=== PATIENT | female | born 1930 | race Two or more races ===

== ENCOUNTER 2021-06-11 16:34 | Emergency (ER) | payer MEDICARE ==
[2021-06-11] MEDS ORDERED: SODIUM CHLORIDE 0.9% 500 ML 500 ML IV STA (21:33)
[2021-06-11] MEDS ORDERED: IBUPROFEN 600 MG TAB PO STA (21:33)
--- NOTE | 2021-06-11 22:19 | XR ---
EXAMINATION TYPE: XR pelvis AP view DATE OF EXAM: 06/11/2021 COMPARISON: NONE HISTORY: Fall. Pain TECHNIQUE: Single view FINDINGS: The pelvic ring is intact. Proximal femurs and hip joints are intact. Sacroiliac joints are intact. IMPRESSION: Negative pelvis x-ray exam.
--- NOTE | 2021-06-11 22:27 | XR ---
EXAMINATION TYPE: XR chest 2V DATE OF EXAM: 06/11/2021 COMPARISON: NONE HISTORY: Weakness TECHNIQUE: Single view FINDINGS: There is impacted comminuted right humeral neck fracture. There is inferior displacement of the humeral head. There is partial dislocation. There is no heart failure. There is coarsening of th e lung markings. There is slight blunting of the left costophrenic angle. Thoracic aorta is atheromat ous. There is a thoracic dextroscoliosis. IMPRESSION: Pulmonary fibrotic changes. No heart failure. There is comminuted fracture dislocation of the right shoulder joint. Small bilateral pleural effusions.
[2021-06-11 23:16] LABS: Basophils # (A) 0.1 k/uL (0-0.2); Basophils % (A) 0 %; Eosinophils # (A) 0.2 k/uL (0-0.7); Eosinophils % (A) 1 %; HCT 37.4 % (34.0-46.0); HGB 12.5 gm/dL (11.4-16.0); Lymphocytes # (A) 1.5 k/uL (1.0-4.8); Lymphocytes % (A) 7 %; MCH 32.5 pg (25.0-35.0); MCHC 33.3 g/dL (31.0-37.0); MCV 97.7 fL (80.0-100.0); Monocytes # (A) 1.9 k/uL (0-1.0); Monocytes % (A) 8 %; Neutrophils # (A) 18.5 k/uL (1.3-7.7); Neutrophils % (A) 83 %; Platelet Count 313 k/uL (150-450); RBC 3.83 m/uL (3.80-5.40); RDW 13.5 % (11.5-15.5); WBC 22.3 k/uL (3.8-10.6)
[2021-06-11 23:21] LABS: Appearance,Urine Clear (Clear); Bilirubin,Urine Negative (Negative); Blood,Urine Small (Negative); Color,Urine Light Yellow; Glucose,Urine (UA) Negative (Negative); Ketones,Urine Negative (Negative); Leukocyte Esterase,Urine Negative (Negative); Mucus,Urine Rare /hpf; Nitrite,Urine Negative (Negative); PH, Urine 5.5 (5.0-8.0); Protein,Urine 1+ (Negative); RBC,Urine <1 /hpf (0-5); Specific Gravity,Urine 1.014 (1.001-1.035); Squamous Epithelial Cell,Urine <1 /hpf (0-4); Urobilinogen,Urine <2.0 mg/dL (<2.0); WBC,Urine 3 /hpf (0-5)
[2021-06-11 23:35] LABS: Magnesium 2.6 mg/dL (1.6-2.3); Potassium 3.4 mmol/L (3.5-5.1)
--- NOTE | 2021-06-12 00:24 | ED ---
General Adult HPI - General Chief complaint: Fall Stated complaint: fall Time Seen by Provider: 06/11/21 20:55 Source: patient, family, RN notes reviewed, old records reviewed Mode of arrival: wheelchair Limitations: no limitations - History of Present Illness Initial comments: Patient is an 89-year-old female with past medical history remarkable for os teoporosis who presents emergency Department after he brought in by family for concern for injury after fall at home. Patient fell approximately 10-12 days ago and broke her right shoulder. Since that time she is intermittent in a cast and lives by herself at home. She was found down at home today. She denies falling but states she was unable to stand back up. She took beats this to mild weakness as well as inability to use her right shoulder. At baseline per family, the patient is able to ambulate without difficulty mostly, but occasionally will need to grab onto things to steady herself. She typically does not follow up with a doctor but is normally very healthy. Is not on any medications other than vitamins. They believe that since she has broken her shoulder, they're concerned that she is having more difficulty getting around her she is unable to grab ahold of things to steady herself. She does have a walker at home. She lives by herself of the dog. They're concerned that this is not a safe space for the patient to be healing. There would like the patient evaluated for any possible causes of weakness, as well as evaluate for any further injuries from her fall. Patient does have abrasions to her bilateral buttocks, as it appears she did slip and scoot down some stairs today. He also noticed that she is getting bruising along the length of her right arm. This is identical to when she broke her left shoulder. She otherwise has full range of motion of her right arm and denies any pain in the right arm. She currently denies any pain other than her right shoulder. She takes Motrin for it. She denies chest pain, shortness of breath, nausea, vomiting, abdominal pain. Has no other acute complaints at this time. If possible, patient would like to go home, and family would also like to take the patient home. They're concerned regarding caregivers as they were unable to obtain a prior office for home health from her current doctor as "he doesn't interact with insurance." - Related Data Home Medications Medication Instructions Recorded Confirmed Ibuprofen [Motrin Ib] 600 mg PO TID 06/11/21 06/11/21 Previous Rx's Medication Instructions Recorded Cephalexin [Keflex] 500 mg PO Q12HR 5 Days #10 cap 06/12/21 Allergies Allergy/AdvReac Type Severity Reaction Status Date / Time No Known Allergies Allergy Verified 06/11/21 22:07 Review of Systems ROS Statement: Those systems with pertinent positive or pertinent negative responses have been documented in the HPI. Review of Systems: CONST: Denies fever EYES: Denies blurry vision ENT: Denies nasal congestion C/V: Denies Chest pain RESP: Denies shortness of breath GI: Denies abdominal pain : Denies dysuria SKIN: Denies rash. MSK: Endorses right shoulder pain. NEURO: Denies headache ROS Other: All systems not noted in ROS Statement are negative. Past Medical History Additional Past Medical History / Comment(s): osteoporosis History of Any Multi-Drug Resistant Organisms: None Reported Past Surgical History: No Surgical Hx Reported Past Psychological History: No Psychological Hx Reported Smoking Status: Never smoker Past Alcohol Use History: None Reported Past Drug Use History: None Reported General Exam - General Exam Comments Initial Comments: General: Appears in no acute distress. HEAD: Normal with no signs of head trauma. No step-offs or deformities. No bruising. EYES: PERRLA, EOMI, conjunctiva normal, no discharge. Pupils are 3 mm equal bilaterally. ENT: Hearing grossly intact, normal oropharynx. RESPIRATORY: Clear breath sounds bilaterally. No wheezes, rales, or rhonchi. C/V: Regular rate and rhythm. S1 and S2 auscultated, no edema, peripheral pulses 2+ and intact throughout ABD: Abd is soft, nontender, nondistended EXT: Patient has tenderness to palpation over the right shoulder at the site of an obvious fracture. Patient does have bruising over the right arm extends from the shoulder to her hands. Compartments are soft. Does not appear to be infectious in nature. Pulses are equal and symmetric bilateral radial arteries. She is normal range of motion distal to the right shoulder. Pelvis is stable. No spinal tenderness palpation. No tenderness palpation over the rest of her body. Remainder of the extremities have no deformities or tenderness. SKIN: She has superficial hearing bruises located over bilateral knees, as well as the bruising that is extensive over the right shoulder extending down to her hand. Patient also some bruising over the right hip. She has 2 superficial abrasions located over her buttocks. NEURO: Alert and oriented 4. No focal sensory or strength deficits. Range of motion of right shoulder is limited secondary to fracture. Limitations: no limitations Course Vital Signs 06/11/21 20:24 Temperature 99 F Pulse Rate 102 H Respiratory 18 Rate Blood Pressure 124/71 O2 Sat by Pulse 95 Oximetry Medical Decision Making - Medical Decision Making Based on patient's presentation and physical exam, I do believe she is a fall risk at home and states family. I discussed with him at length options for the patient. I would like to rule out basic causes of fall risk including dehydration, UTI, cardiac etiology. She had no symptoms were 19 patient would like to go home. She is capable of making decisions, is agreeable to receiving a workup, but ultimately states she does not want stay in the hospital. I did discuss his family that we cannot force patient to stay. Expressed understanding and were in agreement with this plan. We will obtain basic screening labs. They do plan on following up with outpatient orthopedics and have an appointment. I advised that they follow up with orthopedics sometime this week and try to arrange for in-home care at home. They were in agreement with this plan. They would not like the patient admitted if they can be avoided. Patient's EKG showed normal sinus rhythm without any signs of acute ischemia. Laboratory studies revealed a leukocytosis which is likely reactive from the fracture. Remainder the labs are relatively unremarkable including a negative urinalysis. Pelvic x-ray and chest x-ray revealed no acute fractures, however the right shoulder fracture is redemonstrated which is known. On reevaluation, patient like to go home. She was given a 1 L fluid bolus. I discussed at length with the patient's family as well as the patient that options include admission to the hospital for placement for discharge home with eventual home health care and family care. The patient would like to go home with home health and family care. Family agreed to this and they will take the patient home. We discussed the results of her labs. She will be given an antibiotic, as the patient otherwise has normal stable vital signs without any signs of acute infection. She can use Motrin and Tylenol home for pain control. There were in agreement this plan. Patient ultimately will not seem the hospital and would like to go home where she is comfortable. I will provide the patient with a prescription for Keflex. I instructed the patient to follow up with their PCP in the next 3 days. I advised that they follow up with orthopedics to obtain prior FOR home health care. Patient does have PPO insurance. I explained that the patient should return to the emergency department if they experience any worsening symptoms. Strict return precautions were discussed with the patient. The patient expressed understanding of these instructions. I answered all questions that the patient had. The patient was discharged home in there condition with their prescriptions and follow up information. - Lab Data Result diagrams: 06/11/21 22:43 06/11/21 22:43 Lab Results 06/11/21 06/11/21 06/11/21 Range/Units 22:43 22:43 22:43 WBC 22.3 H (3.8-10.6) k/uL RBC 3.83 (3.80-5.40) m/uL Hgb 12.5 (11.4-16.0) gm/dL Hct 37.4 (34.0-46.0) % MCV 97.7 (80.0-100.0) fL MCH 32.5 (25.0-35.0) pg MCHC 33.3 (31.0-37.0) g/dL RDW 13.5 (11.5-15.5) % Plt Count 313 (150-450) k/uL MPV 8.0 Neutrophils % 83 % Lymphocytes % 7 % Monocytes % 8 % Eosinophils % 1 % Basophils % 0 % Neutrophils # 18.5 H (1.3-7.7) k/uL Lymphocytes # 1.5 (1.0-4.8) k/uL Monocytes # 1.9 H (0-1.0) k/uL Eosinophils # 0.2 (0-0.7) k/uL Basophils # 0.1 (0-0.2) k/uL Sodium 136 L (137-145) mmol/L Potassium 3.4 L (3.5-5.1) mmol/L Chloride 103 (98-107) mmol/L Carbon Dioxide 26 (22-30) mmol/L Anion Gap 7 mmol/L BUN 51 H (7-17) mg/dL Creatinine 0.87 (0.52-1.04) mg/dL Est GFR (CKD-EPI)AfAm 68 (>60 ml/min/1.73 sqM) Est GFR (CKD-EPI)NonAf 59 (>60 ml/min/1.73 sqM) Glucose 143 H (74-99) mg/dL Calcium 9.0 (8.4-10.2) mg/dL Magnesium 2.6 H (1.6-2.3) mg/dL Urine Color Light Yellow Urine Appearance Clear (Clear) Urine pH 5.5 (5.0-8.0) Ur Specific [place] 1.014 (1.001-1.035) Urine Protein 1+ H (Negative) Urine Glucose (UA) Negative (Negative) Urine Ketones Negative (Negative) Urine Blood Small H (Negative) Urine Nitrite Negative (Negative) Urine Bilirubin Negative (Negative) Urine Urobilinogen <2.0 (<2.0) mg/dL Ur Leukocyte Esterase Negative (Negative) Urine RBC <1 (0-5) /hpf Urine WBC 3 (0-5) /hpf Ur Squamous Epith Cells <1 (0-4) /hpf Urine Mucus Rare H (None) /hpf Disposition Clinical Impression: Fractured shoulder, Abrasion, Bruising Disposition: HOME SELF-CARE Condition: Fair Instructions (If sedation given, give patient instructions): Fall Prevention for Older Adults (ED), Fall Prevention (ED) Prescriptions: Cephalexin [Keflex] 500 mg PO Q12HR 5 Days #10 cap Is patient prescribed a controlled substance at d/c from ED?: No Referrals: Conrado Orozco DO [Primary Care Provider] - 1-2 days
[2021-06-12 03:10] VITALS: BP 115/74; PULSE 86; RESP 20; TEMP 98.1
== END 2021-06-12 00:35 | disposition home or self-care (01) ==
LOC: EC 16:34
DX: S42.91XA Fracture of right shoulder girdle, part unspecified, initial encounter for closed fracture (principal); T14.8XXA Other injury of unspecified body region, initial encounter; W19.XXXA Unspecified fall, initial encounter; Y92.009 Unspecified place in unspecified non-institutional (private) residence as the place of occurrence of the external cause; Z87.39 Personal history of other diseases of the musculoskeletal system and connective tissue
CPT/HCPCS: 36415; 71046; 72170; 80048; 81001; 83735; 85025; 93005; 96360; 99284

== ENCOUNTER 2021-06-19 13:45 | Inpatient (IN) | payer MEDICARE ==
[2021-06-19] MEDS ORDERED: DEXAMETHASONE SOD PHOSPHATE 10 MG/ML 1 ML VIAL IV STA (14:07)
--- NOTE | 2021-06-19 14:08 | ED ---
General Adult HPI - General Chief complaint: Shortness of Breath Stated complaint: ALEXIA, Covid+ Time Seen by Provider: 06/19/21 13:56 Source: patient, EMS Mode of arrival: EMS Limitations: no limitations - History of Present Illness Initial comments: Dictation was produced using [employer] dictation software. please excuse any grammatical, word or spelling errors. Chief Complaint: 89-year-old female patient brought in by EMS for worsening COVID-19 symptoms History of Present Illness: Patient is an 89-year-old female she was brought in by EMS from home. Patient was allegedly having worsening COVID-19 symptoms. She's been symptomatic for the last 7-8 days. Patient points of shortness of breath. She allegedly received monoclonal antibody infusion after testing positive. She was allegedly brought monoclonal antibodies by EMS.. She lives at him by herself with her pet. She began experiencing worsening exertional dyspnea. Her saturations at home dropped down to 70%. She has a home pulse oximeter. Her pulse ox was checked by her daughters who are visiting her today. EMS reported that upon their initial evaluation she was 85%. Placed on supplemental oxygen given breathing treatments. The ROS documented in this emergency department record has been reviewed and confirmed by me. Those systems with pertinent positive or negative responses have been documented in the HPI. All other systems are other negative and/or noncontributory. PHYSICAL EXAM: General Impression: Alert and oriented x3, not in acute distress HEENT: Normocephalic atraumatic, extra-ocular movements intact, pupils equal and reactive to light bilaterally, mucous membranes moist. Cardiovascular: Heart regular rate and rhythm Chest: Able to complete full sentences, no retractions, no tachypnea Abdomen: abdomen soft, non-tender, non-distended, no organomegaly Musculoskeletal: Pulses present and equal in all extremities, no peripheral edema Motor: no focal deficits noted Neurological: CN II-XII grossly intact, no focal motor or sensory deficits noted Skin: Intact with no visualized rashes Psych: Normal affect and mood ED course: 89-year-old male presents to the [facility] department for hypoxic respiratory failure secondary to COVID-19. Heart rate of 26, 90% on 4 L nasal cannula. Rest of vital signs within acceptable limits. Laboratory evaluation obtained. Leukocytosis of 19.9. Rest of CBC within acceptable limits. Coag panel is negative. D-dimer is 2.24. Sodium 1:30. Rest of metabolic panel is within acceptable limits. CT angios the chest shows no pulmonary embolism. There is a bee to be bilateral extensive pulmonary infiltrates. There is concern of superimposed bacterial pneumonia. Patient given azithromycin and ceftriaxone. She also given Decadron. Patient be admitted with consultation to pulmonology. Chin is satting well on nasal cannula 4 L at 92% - Related Data Home Medications Medication Instructions Recorded Confirmed Ibuprofen [Motrin Ib] 600 mg PO TID 06/11/21 06/19/21 Calcium Citrate 600mg Tablet 2 tab PO DAILY 06/19/21 06/19/21 Cholecalciferol [Vitamin D3 (25 50 mcg PO DAILY 06/19/21 06/19/21 Mcg = 1000 Iu)] Apple-C 500mg Tablet 2 tab PO DAILY 06/19/21 06/19/21 Allergies Allergy/AdvReac Type Severity Reaction Status Date / Time No Known Allergies Allergy Verified 06/19/21 16:22 Review of Systems ROS Statement: Those systems with pertinent positive or pertinent negative responses have been documented in the HPI. ROS Other: All systems not noted in ROS Statement are negative. Past Medical History Additional Past Medical History / Comment(s): osteoporosis History of Any Multi-Drug Resistant Organisms: None Reported Past Surgical History: No Surgical Hx Reported Past Psychological History: No Psychological Hx Reported Smoking Status: Never smoker Past Alcohol Use History: None Reported Past Drug Use History: None Reported General Exam Limitations: no limitations Course Vital Signs 06/19/21 06/19/21 13:55 15:50 Temperature 98.9 F Pulse Rate 104 H 110 H Respiratory 26 H 18 Rate Blood Pressure 146/90 139/98 O2 Sat by Pulse 90 L 92 L Oximetry Medical Decision Making - Lab Data Result diagrams: 06/19/21 14:05 06/19/21 14:05 Lab Results 06/19/21 06/19/21 06/19/21 Range/Units 14:05 14:05 14:05 WBC 19.9 H (3.8-10.6) k/uL RBC 4.26 (3.80-5.40) m/uL Hgb 13.7 (11.4-16.0) gm/dL Hct 44.1 (34.0-46.0) % MCV 103.5 H D (80.0-100.0) fL MCH 32.2 (25.0-35.0) pg MCHC 31.1 (31.0-37.0) g/dL RDW 13.5 (11.5-15.5) % Plt Count 325 (150-450) k/uL MPV 8.1 Neutrophils % 82 % Lymphocytes % 9 % Monocytes % 7 % Eosinophils % 1 % Basophils % 1 % Neutrophils # 16.3 H (1.3-7.7) k/uL Lymphocytes # 1.7 (1.0-4.8) k/uL Monocytes # 1.4 H (0-1.0) k/uL Eosinophils # 0.2 (0-0.7) k/uL Basophils # 0.1 (0-0.2) k/uL Hypochromasia Slight Macrocytosis Slight PT 10.1 (9.0-12.0) sec INR 0.9 (<1.2) APTT 24.6 (22.0-30.0) sec D-Dimer 2.24 H (<0.60) mg/L FEU Sodium 130 L (137-145) mmol/L Potassium 4.4 (3.5-5.1) mmol/L Chloride 97 L (98-107) mmol/L Carbon Dioxide 25 (22-30) mmol/L Anion Gap 8 mmol/L BUN 33 H (7-17) mg/dL Creatinine 0.84 (0.52-1.04) mg/dL Est GFR (CKD-EPI)AfAm 71 (>60 ml/min/1.73 sqM) Est GFR (CKD-EPI)NonAf 62 (>60 ml/min/1.73 sqM) Glucose 119 H (74-99) mg/dL Plasma Lactic Acid Ryan (0.7-2.0) mmol/L Calcium 8.0 L (8.4-10.2) mg/dL Total Bilirubin 1.2 (0.2-1.3) mg/dL AST 61 H (14-36) U/L ALT 33 (4-34) U/L Alkaline Phosphatase 160 H (38-126) U/L Troponin I (0.000-0.034) ng/mL Total Protein 6.1 L (6.3-8.2) g/dL Albumin 3.2 L (3.5-5.0) g/dL 12/07/21 12/07/21 Range/Units 14:05 14:05 WBC (3.8-10.6) k/uL RBC (3.80-5.40) m/uL Hgb (11.4-16.0) gm/dL Hct (34.0-46.0) % MCV (80.0-100.0) fL MCH (25.0-35.0) pg MCHC (31.0-37.0) g/dL RDW (11.5-15.5) % Plt Count (150-450) k/uL MPV Neutrophils % % Lymphocytes % % Monocytes % % Eosinophils % % Basophils % % Neutrophils # (1.3-7.7) k/uL Lymphocytes # (1.0-4.8) k/uL Monocytes # (0-1.0) k/uL Eosinophils # (0-0.7) k/uL Basophils # (0-0.2) k/uL Hypochromasia Macrocytosis PT (9.0-12.0) sec INR (<1.2) APTT (22.0-30.0) sec D-Dimer (<0.60) mg/L FEU Sodium (137-145) mmol/L Potassium (3.5-5.1) mmol/L Chloride (98-107) mmol/L Carbon Dioxide (22-30) mmol/L Anion Gap mmol/L BUN (7-17) mg/dL Creatinine (0.52-1.04) mg/dL Est GFR (CKD-EPI)AfAm (>60 ml/min/1.73 sqM) Est GFR (CKD-EPI)NonAf (>60 ml/min/1.73 sqM) Glucose (74-99) mg/dL Plasma Lactic Acid Ryan 0.8 (0.7-2.0) mmol/L Calcium (8.4-10.2) mg/dL Total Bilirubin (0.2-1.3) mg/dL AST (14-36) U/L ALT (4-34) U/L Alkaline Phosphatase (38-126) U/L Troponin I <0.012 (0.000-0.034) ng/mL Total Protein (6.3-8.2) g/dL Albumin (3.5-5.0) g/dL Critical Care Time Critical Care Time: Yes Total Critical Care Time: 33 Disposition Clinical Impression: COVID-19 Disposition: ADMITTED IP TO THIS HOSP Condition: Critical Referrals: Conrado Orozco DO [Primary Care Provider] - 1-2 days
[2021-06-19 14:18] LABS: Basophils # (A) 0.1 k/uL (0-0.2); Basophils % (A) 1 %; Eosinophils # (A) 0.2 k/uL (0-0.7); Eosinophils % (A) 1 %; HCT 44.1 % (34.0-46.0); HGB 13.7 gm/dL (11.4-16.0); Hypochromasia Slight; Lymphocytes # (A) 1.7 k/uL (1.0-4.8); Lymphocytes % (A) 9 %; MCH 32.2 pg (25.0-35.0); MCHC 31.1 g/dL (31.0-37.0); Macrocytosis Slight; Mean Platelet Volume 8.1; Monocytes # (A) 1.4 k/uL (0-1.0); Monocytes % (A) 7 %; Neutrophils # (A) 16.3 k/uL (1.3-7.7); Neutrophils % (A) 82 %; Platelet Count 325 k/uL (150-450); RBC 4.26 m/uL (3.80-5.40); RDW 13.5 % (11.5-15.5); WBC 19.9 k/uL (3.8-10.6)
[2021-06-19 14:31] LABS: INR 0.9 (<1.2); MCV 103.5 fL (80.0-100.0); Partial Thromboplastin Time 24.6 sec (22.0-30.0); Prothrombin Time 10.1 sec (9.0-12.0)
[2021-06-19 14:33] LABS: Albumin 3.2 g/dL (3.5-5.0); Potassium 4.4 mmol/L (3.5-5.1); Total Bilirubin 1.2 mg/dL (0.2-1.3); Total Protein 6.1 g/dL (6.3-8.2)
--- NOTE | 2021-06-19 14:40 | XR ---
EXAMINATION TYPE: XR chest 1V portable DATE OF EXAM: 06/19/2021 COMPARISON: Chest x-ray June 11, 2021 HISTORY: Cough and fever. TECHNIQUE: Single AP portable frontal upright view of the chest is obtained. FINDINGS: Osseous structures are demineralized. Underlying scoliosis is redemonstrated. Cardiomegaly is again seen with atherosclerotic and ectatic thoracic aorta causing right-sided tracheal deviation . There are chronic hakeem neural changes with new bibasilar and right upper lung opacities. Small marshall ateral pleural effusions are felt present. IMPRESSION: Chronic changes and cardiomegaly with small to tiny bilateral pleural effusions along wi th new right upper lung and bibasilar opacities. Progress study advised.
[2021-06-19] MEDS ORDERED: cefTRIAXone IN SWFI 1,000 MG/10 ML SYRINGE IVP STA (16:13)
[2021-06-19] MEDS ORDERED: AZITHROMYCIN 500 MG in SODIUM CHLORIDE 0.9% 250 ML IVPB STA (16:13)
--- NOTE | 2021-06-19 16:54 | CT ---
EXAMINATION TYPE: CT angio chest DATE OF EXAM: 06/19/2021 COMPARISON: None HISTORY: Elevated d-dimer CT DLP: 246.7 mGycm Automated exposure control for dose reduction was used. CONTRAST: Performed with IV Contrast, patient injected with 100, 41 ml mL of Isovue 370. There are 3-D post processed images. There are moderate bilateral pleural effusions. There is airspace consolidation and atelectasis in gustavo th lower lobes. There is also some consolidation and atelectasis in the posterior segment of the righ t upper lobe. There is no mediastinal adenopathy. Thoracic aorta is atheromatous. There is tortuous thoracic aorta. Aorta measures up to 3.1 cm. There are no hilar masses. There is normal contrast opacification of the pulmonary arteries. There ar e no filling defects. There is thoracic kyphotic deformity with anterior wedging of multiple thoracic vertebra. There is ol d fracture of the superior sternum. IMPRESSION: No evidence of pulmonary embolism. Bilateral extensive pulmonary infiltrates and atelectasis. Bilateral pleural effusions. Cardiomegaly. There is probably chronic congestive heart failure.
[2021-06-19] MEDS ORDERED: ACETAMINOPHEN TAB 325 MG TAB PO PRN (17:19)
[2021-06-19] MEDS ORDERED: NALOXONE 0.4 MG/ML 1 ML VIAL IV PRN (17:19)
[2021-06-19] MEDS ORDERED: SODIUM CHLORIDE 0.9% 1,000 ML IV SCH (17:30)
[2021-06-19] MEDS ORDERED: BUMETANIDE 0.25 MG/ML 4 ML VIAL IVP STA (18:03)
--- NOTE | 2021-06-19 18:54 | P.HPIM ---
History of Present Illness H&P Date: 06/19/21 Chief Complaint: Shortness of breath history obtained mostly from patient's daughter who is patient's This is a very pleasant 89-year-old female with significant past medical history brought to emergency department for evaluation of shortness of breath and confusion. Patient currently does not take any medications at home and only uses homeopathic remedies and has no known medical problems. Patient lives alone in 2 weeks prior to this admission she suffered accidental fall at home and difficulties to get up. At that time family to patient to nearby emergency department where she had trauma workup and no fractures were found and patient was dismissed home. At that time family felt the patient is more with usual. Interestingly family was told that patient was hypoxic and saturating in the range upper 80s. Family was told that that was "fixed. And she was discharged home without oxygen. One week prior to this admission patient sustained another fall and was evaluated in emergency department on 06/11/21. Family felt the patient's weakness has been progressive. Family also felt at the time patient be having some difficulties in breathing. Patient was evaluated and eventually discharged home. This last Friday and we started noticing the patient's sh ortness of breath he has been worsening. Patient sounded somewhat congested. Patient will having dry cough. She started having swelling of her legs. Patient was up almost all night with difficulty breathing. Patient's been having some intermittent confusion. Over the weekend family obtained home COVID-19 test and patient tested positive. Over the weekend patient's respiratory symptoms and confusion progressed and on Friday EMS was called. They evaluated the patient the patient to nearby urgent care. Her COVID-19 was confirmed testing at that facility. She was eventually discharged home. On the day of admission patient was very confused very short of breath hypoxic loss of chest congestion coughing. Family noticed the patient is up all night. Noticed significant lower extremity edema. Visiting nurse advised family to take patient to emergency department. She was found to be very hypoxic she was placed and 4 L nasal cannula with improvement in oxygen up to low 90s. She se emed dyspneic. Chest x-ray showed basilar infiltrates. CT imaging on the chest showed no pulmonary embolism but bilateral pleural effusions bilateral pneumonia and CHF-like findings along with cardiomegaly. Patient told me that she is not vaccinated for COVID-19. Family told me the patient's niece test positive for COVID-19. During my ambulation, patient is dyspneic, wet sounding cough, audible rhonchi and wheezing. Patient seems to be intermittently confused although she was able to tell me that she is in the hospital and the right months. Patient denied any chest pain nausea vomiting orthopnea or abdominal pain. Review of Systems All systems: negative Past Medical History Additional Past Medical History / Comment(s): osteoporosis History of Any Multi-Drug Resistant Organisms: None Reported Past Surgical History: No Surgical Hx Reported Past Psychological History: No Psychological Hx Reported Smoking Status: Never smoker Past Alcohol Use History: None Reported Past Drug Use History: None Reported Medications and Allergies Home Medications Medication Instructions Recorded Confirmed Type Ibuprofen [Motrin Ib] 600 mg PO TID 06/11/21 06/19/21 History Calcium Citrate 600mg Tablet 2 tab PO DAILY 06/19/21 06/19/21 History Cholecalciferol [Vitamin D3 (25 50 mcg PO DAILY 06/19/21 06/19/21 History Mcg = 1000 Iu)] Apple-C 500mg Tablet 2 tab PO DAILY 06/19/21 06/19/21 History Allergies Allergy/AdvReac Type Severity Reaction Status Date / Time No Known Allergies Allergy Verified 06/19/21 16:22 Physical Exam Vitals: Vital Signs Temp Pulse Resp BP Pulse Ox 06/19/21 15:50 110 H 18 139/98 92 L 06/19/21 13:55 98.9 F 104 H 26 H 146/90 90 L Intake and Output 06/19/21 06/19/21 06/19/21 06:59 14:59 22:59 Other: Weight 49.895 kg Patient was awake and alert following commands however she appeared confused she was oriented to place but not exactly to time in her overall condition Head and neck: Ophthalmologic normocephalic chronic that is clear moist mucous membranes no neck masses, neck veins distention Lungs: Diminished breath sounds with diffuse rhonchi and basilar crackles, expiratory wheezing Cardiovascular: Tachycardic regular S1-S2 Abdomen: Soft nontender nondistended no organomegaly no flank tenderness Extremities: 2+ pitting edema warm well perfused no cyanosis Neurological: No focal motor deficits, cranial nerves intact no asterixis Muscular skeletal: She does have some discomfort in the right shoulder however no swelling no swelling or other joints Results CBC & Chem 7: 06/19/21 14:05 06/19/21 14:05 Labs: Abnormal Lab Results - Last 24 Hours (Table) 06/19/21 06/19/21 06/19/21 Range/Units 14:05 14:05 14:05 WBC 19.9 H (3.8-10.6) k/uL MCV 103.5 H D (80.0-100.0) fL Neutrophils # 16.3 H (1.3-7.7) k/uL Monocytes # 1.4 H (0-1.0) k/uL D-Dimer 2.24 H (<0.60) mg/L FEU Sodium 130 L (137-145) mmol/L Chloride 97 L (98-107) mmol/L BUN 33 H (7-17) mg/dL Glucose 119 H (74-99) mg/dL Calcium 8.0 L (8.4-10.2) mg/dL AST 61 H (14-36) U/L Alkaline Phosphatase 160 H (38-126) U/L Total Protein 6.1 L (6.3-8.2) g/dL Albumin 3.2 L (3.5-5.0) g/dL Assessment and Plan Plan: #Acute hypoxic respiratory failure Multifactorial:Likely combination of COVID-19 pneumonia, possibility of underlying secondary bacterial Bronchopneumonia and CHF. Chest x-ray: Bilateral pneumonia CT chest: No pulmonary embolism, bilateral pleural effusion, bilateral pneumonia and pulmonary edema CHF Onset of symptoms 5 days prior to the admission Date of COVID-19 diagnosis: 06/15/21 CT chest: No pulmonary embolism bilateral pneumonia congestive changes bilateral pleural effusions cardiomegaly D-dimer 2.24 CRP pending Pro calcitonin pending ProBNP pending Troponin with normal limits Ordered Mycoplasma IgM, MRSA nasal screen and legionella urine antigen Start bronchodilators, dexamethasone Ordered Bumex stat Ceftriaxone and Zithromax Supplemental oxygen, likely will need high flow or BiPAP Pulmonary consultation Will require Remdesevir Incentive spirometer Upright position Multivitamin ordered Ordered echocardiogram and Doppler lower extremities #SIRS rule out sepsis Leukocytosis Start empirical antibiotics Blood cultures and sputum cultures #Acute toxic metabolic encephalopathy Due to hypoxia, acute illness metabolic derangements infection Continue the orientation #Hyponatremia Patient seems fluid overloaded Start Lasix Nephrology consultation Repeat BMP in the morning DVT prophylaxis: Subcu Lovenox Overall prognosis this patient is very poor. I had a long conversation with patient's daughter about patient's condition and plan of care. Patient's daughter is a patient's power of corporate associate attorney. At this time family would like patient to be DO NOT RESUSCITATE. DO NOT INTUBATE. If patient deteriorates, family would like hospice/cough or measurements only. This was entered in the chart. This was witnessed by nurse practitioner Jaimie. Staley 2 minutes hospital stable. Needed. Home medications reviewed with family.
[2021-06-19] MEDS ORDERED: ALBUTEROL HFA INHALER INHALATION SCH (20:00)
--- NOTE | 2021-06-19 20:17 | US ---
EXAMINATION TYPE: US venous doppler duplex LE BI DATE OF EXAM: 06/19/2021 7:37 PM COMPARISON: NONE CLINICAL HISTORY: dvt. No hx of DVT. Covid patient. SIDE PERFORMED: Bilateral TECHNIQUE: The lower extremity deep venous system is examined utilizing real time linear array sonog katelyn with graded compression, doppler sonography and color-flow sonography. VESSELS IMAGED: Common Femoral Vein Deep Femoral Vein Greater Saphenous Vein * Femoral Vein Popliteal Vein Small Saphenous Vein * Proximal Calf Veins (* superficial vessels) Right Leg: Color flow seen in veins imaged. Veins appear to compress incompletely, probable chronic internal echoes throughout. Complex area seen within the popliteal area: 4.5 x 3.2 x 2.1 cm. Left Leg: Color flow seen in veins imaged. Veins appear to compress incompletely, probable chronic internal echoes throughout. Complex area seen within the popliteal area: 5.3 x 3.8 x 2.1 cm. IMPRESSION: There is evidence for bilateral chronic deep vein thrombosis in the legs. No evidence of acute deep vein thrombosis.
[2021-06-20] MEDS: DEXAMETHASONE SOD PHOSPHATE 10 MG/ML 1 ML VIAL IV SCH (08:24)
[2021-06-20] MEDS: ENOXAPARIN 40 MG/0.4 ML SYRINGE SQ SCH (08:26)
[2021-06-20] MEDS: ASCORBIC ACID 500 MG TAB PO SCH (08:26)
[2021-06-20] MEDS: ZINC SULFATE 220 MG CAP PO SCH (08:26)
[2021-06-20] MEDS: CHOLECALCIFEROL 25 MCG (1000 IU) TABLET PO SCH (08:26)
[2021-06-20] MEDS ORDERED: AZITHROMYCIN 250 MG in SODIUM CHLORIDE 0.9% 250 ML IVPB SCH (09:00)
[2021-06-20] MEDS ORDERED: BUMETANIDE 0.25 MG/ML 10 ML VIAL IV SCH (09:00)
[2021-06-20 09:42] LABS: HCT 42.5 % (37.2-46.3); HGB 12.8 g/dL (12.0-15.0); MCH 31.1 pg (27.0-32.0); MCHC 30.1 g/dL (32.0-37.0); MCV 103.4 fL (80.0-97.0); Mean Platelet Volume 10.6 fL (9.5-12.2); Platelet Count 306 X 10*3/uL (140-440); RBC 4.11 X 10*6/uL (4.10-5.20); RDW 14.3 % (11.5-14.5); WBC 16.51 X 10*3/uL (4.50-10.00)
--- NOTE | 2021-06-20 09:53 | ECHOF ---
Referral Reason:chf MEASUREMENTS -------- HEIGHT: 152.4 cm WEIGHT: 49.9 kg BP: IVSd: 1.1 cm (0.6 - 1.1) LVIDd: 2.4 cm (3.9 - 5.3) LVPWd: 1.3 cm (0.6 - 1.1) EDV(Teich): 21 ml IVSs: 1.2 cm LVIDs: 1.3 cm LVPWs: 1.3 cm %IVS Thck: 1 % ESV(Teich): 5 ml EF(Teich): 78 % %FS: 44 % SV(Teich): 16 ml LVOT Diam: 1.3 cm RVIDd: 2.6 cm (< 3.3) IVC: 16.58 mm Ao Diam: 2.7 cm (2.0 - 3.7) LA Diam: 2.6 cm (2.7 - 3.8) AV Cusp: 1.5 cm (1.5 - 2.6) EPSS: 0.2 cm MV E Ricardo: 0.87 m/s MV DecT: 260 ms MV Dec Ritchie: 3.3 m/s MV A Ricardo: 0.97 m/s MV E/A Ratio: 0.89 MV PHT: 76 ms MR Vmax: 2.02 m/s MR maxP.34 mmHg LVOT Vmax: 1.38 m/s LVOT maxP.76 mmHg AV Vmax: 1.88 m/s AV maxP.35 mmHg BRICE Vmax, Pt: 0.9 cm AV Vmax: 2.03 m/s AV Vmean: 1.48 m/s AV maxP.68 mmHg AV meanP.77 mmHg AV Env.Ti: 261 ms AV VTI: 38.0 cm BRICE Vmax, Pt: 0.9 cm TR Vmax: 3.01 m/s TR maxP.23 mmHg RAP: 5.00 mmHg RVSP: 41.23 mmHg MV EF SLOPE: 19.08 mm/s (70 - 150) MV EXCURSION: 11.54 mm (> 18.000) FINDINGS -------- This was a technically good study. The left ventricular size is normal. Left ventricular wall thickness is normal. Overall left vent ricular systolic function is normal with, an EF between 55 - 60 %. The right ventricle is normal in size. The left atrial size is normal. The right atrial size is normal. Aortic valve is trileaflet and is mildly thickened. There is mild aortic stenosis present. Peak/m cora gradient across the Aortic Valve is 16.68mmHg / 9.77mmHg. The mitral valve is normal. The mitral valve leaflets are mildly thickened. Mild mitral regurgita tion is present. The tricuspid valve appears structurally normal. Mild tricuspid regurgitation present. There is m ild pulmonary hypertension. The right ventricular systolic pressure, as measured by Doppler, is 41. 23mmHg. There is no pulmonic regurgitation present. The aortic root size is normal. Normal inferior vena cava with normal inspiratory collapse consistent with estimated right atrial pre ssure of 5 mmHg. Echo free space indicative of a pericardial fat pad. There is no pericardial effusion. CONCLUSIONS -------- 1. The left ventricular size is normal. 2. Left ventricular wall thickness is normal. 3. Overall left ventricular systolic function is normal with, an EF between 55 - 60 %. 4. Aortic valve is trileaflet and is mildly thickened. 5. There is mild aortic stenosis present. 6. Peak/mean gradient across the Aortic Valve is 16.68mmHg / 9.77mmHg. 7. The mitral valve leaflets are mildly thickened. 8. Mild mitral regurgitation is present. 9. Mild tricuspid regurgitation present. 10. There is mild pulmonary hypertension. 11. The right ventricular systolic pressure, as measured by Doppler, is 41.23mmHg. 12. There is no pericardial effusion. WHITING MACHINE OPERATOR: Casandra Foley RDCS
--- NOTE | 2021-06-20 09:55 | P.PN ---
Subjective Principal diagnosis: Respiratory failure, COVID-19 pneumonitis 89-year-old female admitted with respiratory failure, confusion. Bilateral pneumonia signs of fluid overload COVID-19. Patient is on vaccinated. Per family she does not believe in traditional medicine and does not see doctors. This morning patient is feeling much better. She is awake and alert orientated. Her breathing is better. She still remains in the high oxygen requirements and nasal cannula and hyphal however she feeling significantly improved. She is able to lay flat. Her cough is improving. Still no appetite. Objective - Vital Signs Vital signs: Vital Signs Temp 97.5 F L 06/20/21 05:36 Pulse 100 06/20/21 07:40 Resp 14 06/20/21 07:40 BP 107/67 06/20/21 05:36 Pulse Ox 96 06/20/21 05:36 Intake & Output 06/19/21 06/20/21 06/20/21 18:59 06:59 18:59 Weight 49.895 kg 49.895 kg Other: Voiding Method Bedside Commode Bedside Commode # Voids 1 1 - Exam Patient was awake and alert following commands participating in conversation appropriately Head and neck: normocephalic chronic that is clear moist mucous membranes no neck masses, neck veins distention Lungs: Diminished breath sounds with diffuse rhonchi and basilar crackles, expiratory wheezing Cardiovascular: regular S1-S2 Abdomen: Soft nontender nondistended no organomegaly no flank tenderness Extremities: 1+ pitting edema warm well perfused no cyanosis Neurological: No focal motor deficits, cranial nerves intact no asterixis Muscular skeletal: She does have some discomfort in the right shoulder however no swelling no swelling or other joints - Labs CBC & Chem 7: 06/20/21 06:10 06/19/21 14:05 Labs: Abnormal Lab Results - Last 24 Hours (Table) 06/19/21 06/19/21 06/19/21 Range/Units 14:05 14:05 14:05 WBC 19.9 H (3.8-10.6) k/uL MCV 103.5 H D (80.0-100.0) fL MCHC (32.0-37.0) g/dL Neutrophils # 16.3 H (1.3-7.7) k/uL Monocytes # 1.4 H (0-1.0) k/uL D-Dimer 2.24 H (<0.60) mg/L FEU Sodium 130 L (137-145) mmol/L Chloride 97 L (98-107) mmol/L BUN 33 H (7-17) mg/dL Glucose 119 H (74-99) mg/dL Calcium 8.0 L (8.4-10.2) mg/dL AST 61 H (14-36) U/L Alkaline Phosphatase 160 H (38-126) U/L Total Protein 6.1 L (6.3-8.2) g/dL Albumin 3.2 L (3.5-5.0) g/dL Procalcitonin (0.02-0.09) ng/mL Coronavirus (PCR) (Not Detectd) 06/19/21 06/19/21 06/20/21 Range/Units 19:54 20:18 06:10 WBC 16.51 H (3.8-10.6) k/uL MCV 103.4 H (80.0-100.0) fL MCHC 30.1 L (32.0-37.0) g/dL Neutrophils # (1.3-7.7) k/uL Monocytes # (0-1.0) k/uL D-Dimer (<0.60) mg/L FEU Sodium (137-145) mmol/L Chloride (98-107) mmol/L BUN (7-17) mg/dL Glucose (74-99) mg/dL Calcium (8.4-10.2) mg/dL AST (14-36) U/L Alkaline Phosphatase (38-126) U/L Total Protein (6.3-8.2) g/dL Albumin (3.5-5.0) g/dL Procalcitonin 0.24 H (0.02-0.09) ng/mL Coronavirus (PCR) Detected A (Not Detectd) Assessment and Plan Plan: #Acute hypoxic respiratory failure Multifactorial:Likely combination of COVID-19 pneumonia, possibility of underlying secondary bacterial Bronchopneumonia and CHF. Chest x-ray: Bilateral pneumonia CTA chest: No pulmonary embolism, bilateral pleural effusion, bilateral pneumonia and pulmonary edema CHF Onset of symptoms 5 days prior to the admission Date of COVID-19 diagnosis: 06/15/21 Unvaccinated D-dimer 2.24 CRP pending Pro calcitonin 0.24 ProBNP elevated Troponin with normal limits Ordered Mycoplasma IgM, MRSA nasal screen and legionella urine antigen Start bronchodilators, dexamethasone Continue Bumex Ceftriaxone and Zithromax started 06/19/21 Supplemental oxygen Pulmonary consultation Incentive spirometer Upright position Multivitamin ordered Ordered echocardiogram and Doppler lower extremities We will order physical and occupational therapy, encourage out of bed #SIRS rule out sepsis Leukocytosis Start empirical antibiotics Blood cultures and sputum cultures #Acute toxic metabolic encephalopathy Due to hypoxia, acute illness metabolic derangements infection Improving Continue the orientation #Hyponatremia Patient seems fluid overloaded Nephrology consultation Repeat BMP in the morning #Severe protein calorie malnutrition, osteoporosis Obtain nutrition consultation, encourage protein intake DVT prophylaxis: Subcu Lovenox Patient is DO NOT RESUSCITATE. Family and patient agreeable with aggressive medical management however the patient clinical condition deteriorates patient will be comfort measures only. Physical occupational therapy, out of bed encouraged
[2021-06-20 10:44] LABS: African American GFR (CKD) 75.1 (60.0-200.0); Albumin 3.1 g/dL (3.8-4.9); Albumin/Globulin Ratio 1.55 (1.60-3.17); BUN/Creat Ratio 33.87 Ratio (12.00-20.00); Blood Urea Nitrogen 27.3 mg/dL (9.0-27.0); Calcium 7.7 mg/dL (8.7-10.3); Carbon Dioxide 26.4 mmol/L (20.0-27.5); Non-African American GFR(CKD) 64.8 (60.0-200.0); Potassium 4.2 mmol/L (3.5-5.5); Total Bilirubin 0.4 mg/dL (0.30-1.20); Total Protein 5.2 g/dL (6.2-8.2)
--- NOTE | 2021-06-20 10:55 | P.NPCON ---
History of Present Illness - Reason for Consult hyponatremia - History of Present Illness Reason for consultation: Hyponatremia History of present illness: Patient is a 89-year-old female seen in consultation for hyponatremia. Patient's sodium level on admission was 130 and is up to 135 today. Patient p resented to the hospital due to symptoms of COVID-19 infection. Patient is not vaccinated. Patient felt short of breath which progressively getting worse. It appears from the chart that she did receive monoclonal antibody treatment. She did test positive for coronavirus this admission. She is currently on 4 L nasal cannula. She underwent chest CT on 06/19/2021 which revealed no evidence of p ulmonary embolism. Extensive pulmonary infiltrates as well as pleural effusions were noted. She is also receiving IV Bumex 1 mg daily. Echocardiogram revealed preserved ejection fraction. I do note Motrin 600 mg 3 times daily and her home medication list but is unclear as to which was exactly taking. No history of diabetes. Vital signs are stable. General: On nasal cannula. HEENT: Head exam is unremarkable. LUNGS: Breath sounds decreased. HEART: Rate and Rhythm are regular. ABDOMEN: Soft, no distention. EXTREMITITES: 1+ edema. Past Medical History Past Medical History: Deep Vein Thrombosis (DVT), Osteoarthritis (OA) Additional Past Medical History / Comment(s): osteoporosis, multiple falls, current broken right shoulder from recent fall, endometriosis, chronic DVT's were noted on doppler results. History of Any Multi-Drug Resistant Organisms: None Reported Past Surgical History: No Surgical Hx Reported, Cholecystectomy, Hysterectomy Past Anesthesia/Blood Transfusion Reactions: No Reported Reaction Past Psychological History: Anxiety, Depression Smoking Status: Never smoker Past Alcohol Use History: Rare Past Drug Use History: None Reported Medications and Allergies Home Medications Medication Instructions Recorded Confirmed Type Ibuprofen [Motrin Ib] 600 mg PO TID 06/11/21 06/19/21 History Calcium Citrate 600mg Tablet 2 tab PO DAILY 06/19/21 06/19/21 History Cholecalciferol [Vitamin D3 (25 50 mcg PO DAILY 06/19/21 06/19/21 History Mcg = 1000 Iu)] Apple-C 500mg Tablet 2 tab PO DAILY 06/19/21 06/19/21 History Allergies Allergy/AdvReac Type Severity Reaction Status Date / Time No Known Allergies Allergy Verified 06/19/21 16:22 Physical Exam Vitals: Vital Signs Temp Pulse Pulse Resp BP BP Pulse Ox 06/20/21 10:33 98.1 F 97 17 98/64 95 06/20/21 07:40 100 14 06/20/21 05:36 97.5 F L 100 14 107/67 96 06/20/21 01:02 98.2 F 76 14 112/69 97 06/19/21 21:01 16 06/19/21 21:00 98.3 F 108 H 16 133/83 98 06/19/21 20:33 98.6 F 102 H 24 132/82 97 06/19/21 19:30 96 06/19/21 18:38 98.9 F 109 H 26 H 132/76 97 06/19/21 15:50 110 H 18 139/98 92 L 06/19/21 13:55 98.9 F 104 H 26 H 146/90 90 L Intake and Output 06/19/21 06/20/21 06/20/21 22:59 06:59 14:59 Other: Voiding Method Bedside Commode Bedside Commode # Voids 1 1 Weight 49.895 kg Results - Lab Results Most recent lab results Calcium 7.7 mg/dL (8.7-10.3) L 06/20/21 06:10 06/20/21 06:10 06/20/21 06:10 Assessment and Plan Plan: Assessment: 1. Hypervolemic hyponatremia. Improved with diuresis. Sodium level 135 today. 2. Acute hypoxic respiratory failure. 3. COVID-19 infection. 4. Fluid overload. Plan: Maintain IV Bumex. 1500 mL fluid restriction. Encourage oral intake. Repeat labs in the morning. Thank you for the consultation. I will continue to follow the patient with you during her hospital stay.
--- NOTE | 2021-06-20 11:10 | P.CONS ---
History of Present Illness - Reason for Consult Consult date: 06/20/21 wound care - History of Present Illness This is an 89-year-old patient being seen on 4 S. for nonhealing ulcerations to the buttocks. Patient stated that she did not have any ulcerations that it was just from her fall previously. But upon examination patient has unstageable pressure ulcers to the right and left buttocks. It appears that these ulcerations have been there for some time related to the significant eschar In place. The eschar Is firm and attached to the wound edges. The right buttocks ulceration measures approximately 1.2 x 0.7 x 0.1 cm in the left buttocks ulceration measures 1.3 x 1.0 x 0.1 cm. Patient's past medical history significant for DVT, osteoporosis, ulcer arthritis, multiple sclerosis, denies diabetes, a lifelong nonsmoker. Review Of Systems: Constitutional: No fever, no chills, no night sweats. No weight change. No weakness, fatigue or lethargy. No daytime sleepiness. Integumentary:reports wounds, no lesions. No rash or pruritus. No unusual bruising. No change in hair or nails. Physical exam: General Appearance: Alert, cooperative, no distress, appears stated age. Skin: See HPI all other Skin color, texture, tugor normal, no rashes or lesions. Neurologic: Alert oriented x3 Assessment: 1. Unstageable pressure ulcer right buttocks 2. Unstable pressure ulcer left buttocks Plan: 1.Right and Left buttocks: Apply honey gel, dry gauze and foam, secure with tape. Utilize a air-filled cushion for sitting. Turn patient every 2 hours. Continue to work on offloading. Patient would benefit from outpatient advance wound care. We would be happy to see her in the wound care center upon discharge. Thank you for the consultation any questions please contact the wound care center DNP note has been reviewed and discussed with Dr. Bryan and the impression and plan of care has been directed as dictated. Past Medical History Past Medical History: Deep Vein Thrombosis (DVT), Osteoarthritis (OA) Additional Past Medical History / Comment(s): osteoporosis, multiple falls, current broken right shoulder from recent fall, endometriosis, chronic DVT's were noted on doppler results. History of Any Multi-Drug Resistant Organisms: None Reported Past Surgical History: No Surgical Hx Reported, Cholecystectomy, Hysterectomy Past Anesthesia/Blood Transfusion Reactions: No Reported Reaction Past Psychological History: Anxiety, Depression Smoking Status: Never smoker Past Alcohol Use History: Rare Past Drug Use History: None Reported Medications and Allergies Home Medications Medication Instructions Recorded Confirmed Type Ibuprofen [Motrin Ib] 600 mg PO TID 06/11/21 06/19/21 History Calcium Citrate 600mg Tablet 2 tab PO DAILY 06/19/21 06/19/21 History Cholecalciferol [Vitamin D3 (25 50 mcg PO DAILY 06/19/21 06/19/21 History Mcg = 1000 Iu)] Apple-C 500mg Tablet 2 tab PO DAILY 06/19/21 06/19/21 History Allergies Allergy/AdvReac Type Severity Reaction Status Date / Time No Known Allergies Allergy Verified 06/19/21 16:22 Physical Exam Vitals: Vital Signs Temp Pulse Pulse Resp BP BP Pulse Ox 06/20/21 10:33 98.1 F 97 17 98/64 95 06/20/21 07:40 100 14 06/20/21 05:36 97.5 F L 100 14 107/67 96 06/20/21 01:02 98.2 F 76 14 112/69 97 06/19/21 21:01 16 06/19/21 21:00 98.3 F 108 H 16 133/83 98 06/19/21 20:33 98.6 F 102 H 24 132/82 97 06/19/21 19:30 96 06/19/21 18:38 98.9 F 109 H 26 H 132/76 97 06/19/21 15:50 110 H 18 139/98 92 L 06/19/21 13:55 98.9 F 104 H 26 H 146/90 90 L Intake and Output 06/19/21 06/20/21 06/20/21 22:59 06:59 14:59 Other: Voiding Method Bedside Commode Bedside Commode # Voids 1 1 Weight 49.895 kg Results CBC & Chem 7: 06/20/21 06:10 06/20/21 06:10 Labs: Abnormal Lab Results - Last 24 Hours (Table) 06/19/21 06/19/21 06/19/21 Range/Units 14:05 14:05 14:05 WBC 19.9 H (3.8-10.6) k/uL MCV 103.5 H D (80.0-100.0) fL MCHC (32.0-37.0) g/dL Neutrophils # 16.3 H (1.3-7.7) k/uL Monocytes # 1.4 H (0-1.0) k/uL D-Dimer 2.24 H (<0.60) mg/L FEU Sodium 130 L (137-145) mmol/L Chloride 97 L (98-107) mmol/L BUN 33 H (7-17) mg/dL BUN/Creatinine Ratio (12.00-20.00) Ratio Glucose 119 H (74-99) mg/dL Calcium 8.0 L (8.4-10.2) mg/dL AST 61 H (14-36) U/L Alkaline Phosphatase 160 H (38-126) U/L Total Protein 6.1 L (6.3-8.2) g/dL Albumin 3.2 L (3.5-5.0) g/dL Albumin/Globulin Ratio (1.60-3.17) g/dL Procalcitonin (0.02-0.09) ng/mL Coronavirus (PCR) (Not Detectd) 06/19/21 06/19/21 06/20/21 Range/Units 19:54 20:18 06:10 WBC 16.51 H (3.8-10.6) k/uL MCV 103.4 H (80.0-100.0) fL MCHC 30.1 L (32.0-37.0) g/dL Neutrophils # (1.3-7.7) k/uL Monocytes # (0-1.0) k/uL D-Dimer (<0.60) mg/L FEU Sodium (137-145) mmol/L Chloride (98-107) mmol/L BUN (7-17) mg/dL BUN/Creatinine Ratio (12.00-20.00) Ratio Glucose (74-99) mg/dL Calcium (8.4-10.2) mg/dL AST (14-36) U/L Alkaline Phosphatase (38-126) U/L Total Protein (6.3-8.2) g/dL Albumin (3.5-5.0) g/dL Albumin/Globulin Ratio (1.60-3.17) g/dL Procalcitonin 0.24 H (0.02-0.09) ng/mL Coronavirus (PCR) Detected A (Not Detectd) 06/20/21 Range/Units 06:10 WBC (3.8-10.6) k/uL MCV (80.0-100.0) fL MCHC (32.0-37.0) g/dL Neutrophils # (1.3-7.7) k/uL Monocytes # (0-1.0) k/uL D-Dimer (<0.60) mg/L FEU Sodium (137-145) mmol/L Chloride (98-107) mmol/L BUN 27.3 H (7-17) mg/dL BUN/Creatinine Ratio 33.87 H (12.00-20.00) Ratio Glucose (74-99) mg/dL Calcium 7.7 L (8.4-10.2) mg/dL AST 36 H (14-36) U/L Alkaline Phosphatase 153 H (38-126) U/L Total Protein 5.2 L (6.3-8.2) g/dL Albumin 3.1 L (3.5-5.0) g/dL Albumin/Globulin Ratio 1.55 L (1.60-3.17) g/dL Procalcitonin (0.02-0.09) ng/mL Coronavirus (PCR) (Not Detectd) Microbiology - Last 24 Hours (Table) 06/20/21 05:45 Group A Strep Throat Culture - Preliminary Throat Assessment and Plan (1) Unstageable pressure ulcer of right buttock Current Visit: Yes Status: Acute Code(s): L89.310 - PRESSURE ULCER OF RIGHT BUTTOCK, UNSTAGEABLE SNOMED Code(s): 016189692 (2) Unstageable pressure ulcer of left buttock Current Visit: Yes Status: Acute Code(s): L89.320 - PRESSURE ULCER OF LEFT BUTTOCK, UNSTAGEABLE SNOMED Code(s): 215216702
[2021-06-20] MEDS: ALBUTEROL HFA INHALER INHALATION SCH ×4 (12:45→21:36)
--- NOTE | 2021-06-20 13:08 | US ---
EXAMINATION TYPE: US chest DATE OF EXAM: 06/20/2021 COMPARISON: CT dated 06/19/2014 CLINICAL HISTORY: marshall pleural effusions. SOB TECHNIQUE: Targeted ultrasound of the posterior lower bilateral hemithoraces EXAM MEASUREMENTS: Right Pleural Effusion pocket size: no fluid seen Left Pleural Effusion pocket size: 2.2 cm Left skin surface to fluid distance: 2.9 cm Left side marked for possible thoracentesis outside the dept. Pulmonologists are able to review the images in the patient?s EMR. IMPRESSIONS: Fluid seen on CT scan is not seen on today's ultrasound within the posterior right chest . There is a moderate left pleural effusion.
--- NOTE | 2021-06-20 14:43 | P.CNPUL ---
History of Present Illness Consult date: 06/20/21 Requesting physician: Rambo Meza Reason for consult: dyspnea Chief complaint: Shortness of breath History of present illness: 89-year-old female patient with no significant medical history, patient takes no home medications, and only uses homeopathic remedies. Patient was brought into the hospital on 06/19/2021 by EMS from home with worsening COVID-19 symptoms. Patient had been symptomatic for 7-8 days prior to presentation. She is complaining of shortness of breath, cough. No reports of fever. No nausea or vomiting, no diarrhea. She allegedly received monoclonal antibody infusion after testing positive brought in by the EMS. Her O2 saturations at home on her home pulse ox device were out on 70%. In the emergency department her pulse ox was 85% and she was placed on supplemental oxygen. Chest x-ray showed changes and cardiomegaly with small tiny bilateral pleural effusions and bibasilar opacities. Her laboratory evaluation revealed leukocytosis with white blood cell count of 19.9, hemoglobin of 13.7, d-dimer was 2.24, INR was 0.9, sodium was 130, potassium is 4.4, chloride was 97, CO2 is 25, B1 is 33, creatinine was 0.84, AST was 61, ALT was 33, alkaline phosphatase was 160, troponin was less than 0.012, proBNP was 1490, Procalcitonin level was negative at 0.24, patient tested positive for COVID-19, group A strep was negative. CT angiogram was completed showing no evidence of pulmonary embolism, bilateral extensive pulmonary infiltrates and atelectasis, bilateral pleural effusions, cardiomegaly, and evidence of chronic congestive heart failure. EKG showed sinus tachycardia with evidence of inferior infarct of undetermined age. Patient was started on IV diuretics with Bumex, her serum sodium has improved with diuresis. Echocardiogram has been obtained showing normal EF of 55-60%, mild aortic stenosis, mild MR, mild TR, mild pulmonary hypertension with right ventricular systolic pressure of 41.23 mmHg. In addition patient has unstageable decubitus ulcers on bilateral buttocks. Wound services 7 consulted. She may need orthopedic evaluation for right arm pain, limited range of motion, bruising, and swelling secondary to history of a fall 2 weeks ago on a slippery pavement Review of Systems All systems: negative Constitutional: Denies chills, Denies fever Eyes: denies blurred vision, denies pain Ears, nose, mouth and throat: Denies headache, Denies sore throat Cardiovascular: Denies chest pain, Denies shortness of breath Respiratory: Reports dyspnea, Denies cough Gastrointestinal: Denies abdominal pain, Denies diarrhea, Denies nausea, Denies vomiting Genitourinary: Denies dysuria, Denies hematuria Musculoskeletal: Denies myalgias Integumentary: Denies pruritus, Denies rash Neurological: Denies numbness, Denies weakness Psychiatric: Denies anxiety, Denies depression Endocrine: Denies fatigue, Denies weight change Past Medical History Past Medical History: Deep Vein Thrombosis (DVT), Osteoarthritis (OA) Additional Past Medical History / Comment(s): osteoporosis, multiple falls, current broken right shoulder from recent fall, endometriosis, chronic DVT's were noted on doppler results. History of Any Multi-Drug Resistant Organisms: None Reported Past Surgical History: No Surgical Hx Reported, Cholecystectomy, Hysterectomy Past Anesthesia/Blood Transfusion Reactions: No Reported Reaction Past Psychological History: Anxiety, Depression Smoking Status: Never smoker Past Alcohol Use History: Rare Past Drug Use History: None Reported Medications and Allergies Home Medications Medication Instructions Recorded Confirmed Type Ibuprofen [Motrin Ib] 600 mg PO TID 06/11/21 06/19/21 History Calcium Citrate 600mg Tablet 2 tab PO DAILY 06/19/21 06/19/21 History Cholecalciferol [Vitamin D3 (25 50 mcg PO DAILY 06/19/21 06/19/21 History Mcg = 1000 Iu)] Apple-C 500mg Tablet 2 tab PO DAILY 06/19/21 06/19/21 History Allergies Allergy/AdvReac Type Severity Reaction Status Date / Time No Known Allergies Allergy Verified 06/19/21 16:22 Physical Exam Vitals: Vital Signs Temp Pulse Pulse Resp BP BP Pulse Ox 06/20/21 10:33 98.1 F 97 17 98/64 95 06/20/21 07:40 100 14 06/20/21 05:36 97.5 F L 100 14 107/67 96 06/20/21 01:02 98.2 F 76 14 112/69 97 06/19/21 21:01 16 06/19/21 21:00 98.3 F 108 H 16 133/83 98 06/19/21 20:33 98.6 F 102 H 24 132/82 97 12/07/21 19:30 96 06/19/21 18:38 98.9 F 109 H 26 H 132/76 97 06/19/21 15:50 110 H 18 139/98 92 L Intake and Output 06/19/21 06/20/21 06/20/21 22:59 06:59 14:59 Other: Voiding Method Bedside Commode Bedside Commode # Voids 1 1 Weight 49.895 kg GENERAL EXAM: Alert, hard of hearingr, 89-year-old white female on 4 L of oxygen and the pulse ox 95%, comfortable in no apparent distress. HEAD: Normocephalic/atraumatic. EYES: Normal reaction of pupils, equal size. Conjunctiva pink, sclera white. NOSE: Clear with pink turbinates. THROAT: No erythema or exudates. NECK: No masses, no JVD, no thyroid enlargement, no adenopathy. CHEST: No chest wall deformity. Symmetrical expansion. LUNGS: Equal air entry with diminished breath sounds and bilateral crackles CVS: Regular rate and rhythm, normal S1 and S2, no gallops, no murmurs, no rubs ABDOMEN: Soft, nontender. No hepatosplenomegaly, normal bowel sounds, no guarding or rigidity. EXTREMITIES: No clubbing, no edema, no cyanosis, 2+ pulses and upper and lower extremities. MUSCULOSKELETAL: Muscle strength and tone normal. SPINE: No scoliosis or deformity SKIN: No rashes, unstageable decubitus ulcers on bilateral buttocks CENTRAL NERVOUS SYSTEM: Alert and oriented -3. No focal deficits, tone is normal in all 4 extremities. PSYCHIATRIC: Alert and oriented -3. Appropriate affect. Intact judgment and insight. Results - Laboratory Findings CBC and BMP: 06/20/21 06:10 06/20/21 06:10 PT/INR, D-dimer PT 10.1 sec (9.0-12.0) 06/19/21 14:05 INR 0.9 (<1.2) 06/19/21 14:05 D-Dimer 2.24 mg/L FEU (<0.60) H 06/19/21 14:05 Abnormal lab findings: Abnormal Labs 06/19/21 06/19/21 06/19/21 14:05 14:05 14:05 WBC 19.9 H MCV 103.5 H D MCHC Neutrophils # 16.3 H Monocytes # 1.4 H D-Dimer 2.24 H Sodium 130 L Chloride 97 L BUN 33 H BUN/Creatinine Ratio Glucose 119 H Calcium 8.0 L AST 61 H Alkaline Phosphatase 160 H Total Protein 6.1 L Albumin 3.2 L Albumin/Globulin Ratio Procalcitonin Coronavirus (PCR) 06/19/21 06/19/21 06/20/21 19:54 20:18 06:10 WBC 16.51 H MCV 103.4 H MCHC 30.1 L Neutrophils # Monocytes # D-Dimer Sodium Chloride BUN BUN/Creatinine Ratio Glucose Calcium AST Alkaline Phosphatase Total Protein Albumin Albumin/Globulin Ratio Procalcitonin 0.24 H Coronavirus (PCR) Detected A 06/20/21 06:10 WBC MCV MCHC Neutrophils # Monocytes # D-Dimer Sodium Chloride BUN 27.3 H BUN/Creatinine Ratio 33.87 H Glucose Calcium 7.7 L AST 36 H Alkaline Phosphatase 153 H Total Protein 5.2 L Albumin 3.1 L Albumin/Globulin Ratio 1.55 L Procalcitonin Coronavirus (PCR) - Diagnostic Findings Chest x-ray: report reviewed, image reviewed CT scan - chest: report reviewed, image reviewed Additional studies: US chest, ekg reviewed, Echo reviewed Assessment and Plan Plan: Assessment: #1. Acute hypoxic respiratory failure, multifactorial, related to acute exacerbation of chronic CHF with diastolic dysfunction and acute COVID-19 infection. Patient is a non-vaccinated adult, allegedly received monoclonal antibodies given by EMS. Patient presented with 7-8 day history of symptoms rashmi or to presentation, she is outside the window for Remdesivir. We'll continue supportive treatment, and patient is on diuretics, steroids, and prophylactic anticoagulation. #2. Acute exacerbation of chronic CHF, diastolic dysfunction, newly diagnosed #3. Hyponatremia, likely hypovolemic improving with IV diuresis #4. Elevated d-dimer with no CT evidence of pulmonary embolism #5. Recent fall with trauma to the right arm with swelling, bruising and a limited range of motion #6. Chronic bilateral lower extremity DVTs #7. Decubitus ulcer, unstageable, on bilateral buttocks present on presentation, services are following #8. Never smoker #9. Osteoporosis #10. Leucocytosis, with mildly elevated pro calcitonin, patient is covered with empiric azithromycin and Rocephin #11. Chronic DVTs in bilateral lower extremities Plan: Agree with IV diuretics, Continue Decadron, prophylactic Lovenox Ultrasound of the chest has been reviewed showing no significant pleural fluid for thoracentesis Continue medical management Vital signs have been stable, no fever or chills Continue supportive treatment Lower extremity Dopplers revealed chronic DVTs Continue prophylactic anticoagulation Overall prognosis is guarded Continue supportive treatment CODE STATUS is DO NOT RESUSCITATE I performed a history & physical examination of the patient and discussed their management with my nurse practitioner, Rosalinda Michele. I reviewed the nurse practitioner's note and agree with the documented findings and plan of care. Lung sounds are positive for marshall crackles at the lung mena. The findings and the impression was discussed with the patient. I attest to the documentation by the nurse practitioner. Time with Patient: Greater than 30
[2021-06-21] MEDS: ZINC SULFATE 220 MG CAP PO SCH (08:23)
[2021-06-21] MEDS: CHOLECALCIFEROL 25 MCG (1000 IU) TABLET PO SCH (08:23)
[2021-06-21] MEDS: DEXAMETHASONE SOD PHOSPHATE 10 MG/ML 1 ML VIAL IV SCH (08:23)
[2021-06-21] MEDS: ASCORBIC ACID 500 MG TAB PO SCH (08:23)
[2021-06-21] MEDS: ENOXAPARIN 40 MG/0.4 ML SYRINGE SQ SCH (08:23)
[2021-06-21] MEDS ORDERED: CEFDINIR 300 MG CAP PO SCH (09:00)
--- NOTE | 2021-06-21 09:12 | P.PN ---
Subjective Principal diagnosis: Respiratory failure, COVID-19 pneumonitis 89-year-old female admitted with respiratory failure, confusion. Bilateral pneumonia signs of fluid overload COVID-19. Patient is on vaccinated. Per family she does not believe in traditional medicine and does not see doctors. Pt is feeling bettr. Patient's breathing is better. Stable oxygen demand. She is up in the chair. No abdominal pain no chest pain. Objective - Vital Signs Vital signs: Vital Signs Temp 98.2 F 06/21/21 06:24 Pulse 92 06/21/21 08:20 Resp 18 06/21/21 03:40 BP 95/56 06/21/21 08:20 Pulse Ox 96 06/21/21 08:20 Intake & Output 06/20/21 06/21/21 06/21/21 18:59 06:59 18:59 Intake Total 450 400 Balance 450 400 Weight 55 kg Intake: Intake, IV Titration 100 Amount cefTRIAXone 1 gm In 100 Sodium Chloride 0.9% 50 ml @ 100 mls/hr IVPB Q24HR [facility] Rx#:[id number] Oral 350 400 Other: Voiding Method Bedside Commode # Voids 4 2 - Exam Patient was awake and alert following commands participating in conversation appropriately Head and neck: normocephalic chronic that is clear moist mucous membranes no neck masses, neck veins distention Lungs: Diminished breath sounds with diffuse rhonchi and basilar crackles, expiratory wheezing Cardiovascular: regular S1-S2 Abdomen: Soft nontender nondistended no organomegaly no flank tenderness Extremities: 1+ pitting edema warm well perfused no cyanosis Neurological: No focal motor deficits, cranial nerves intact no asterixis Muscular skeletal: She does have some discomfort in the right shoulder however no swelling no swelling or other joints - Labs CBC & Chem 7: 06/20/21 06:10 06/20/21 06:10 Labs: Abnormal Lab Results - Last 24 Hours (Table) 06/20/21 06/20/21 Range/Units 06:10 06:10 WBC 16.51 H (4.50-10.00) X 10*3/uL MCV 103.4 H (80.0-97.0) fL MCHC 30.1 L (32.0-37.0) g/dL BUN 27.3 H (9.0-27.0) mg/dL BUN/Creatinine Ratio 33.87 H (12.00-20.00) Ratio Calcium 7.7 L (8.7-10.3) mg/dL AST 36 H (13-35) U/L Alkaline Phosphatase 153 H (41-126) U/L Total Protein 5.2 L (6.2-8.2) g/dL Albumin 3.1 L (3.8-4.9) g/dL Albumin/Globulin Ratio 1.55 L (1.60-3.17) g/dL Microbiology - Last 24 Hours (Table) 06/19/21 19:54 Blood Culture - Preliminary Blood No Growth after 24 hours 06/20/21 05:45 Group A Strep Throat Culture - Preliminary Throat Assessment and Plan Plan: #Acute hypoxic respiratory failure Multifactorial:Likely combination of COVID-19 pneumonia, possibility of underlying secondary bacterial Bronchopneumonia and CHF. Chest x-ray: Bilateral pneumonia CTA chest: No pulmonary embolism, bilateral pleural effusion, bilateral pneumonia and pulmonary edema CHF Onset of symptoms 5 days prior to the admission Date of COVID-19 diagnosis: 06/15/21 Unvaccinated D-dimer 2.24 CRP pending Pro calcitonin 0.24 ProBNP elevated Troponin with normal limits Ordered Mycoplasma IgM, MRSA nasal screen and legionella urine antigen Start bronchodilators, dexamethasone Continue Bumex Ceftriaxone and Zithromax started 06/19/21 Changed or Supplemental oxygen Pulmonary consultation Incentive spirometer Upright position Multivitamin ordered Echocardiogram: Preserved EF Doppler lower extremities chronic DVT, no acute DVT We will order physical and occupational therapy, encourage out of bed #SIRS rule out sepsis Leukocytosis Start empirical antibiotics Blood cultures and sputum cultures #Acute toxic metabolic encephalopathy Due to hypoxia, acute illness metabolic derangements infection Improving Continue the orientation #Hyponatremia Improved Nephrology follow #Severe protein calorie malnutrition, osteoporosis Obtain nutrition consultation, encourage protein intake DVT prophylaxis: Subcu Lovenox Patient is DO NOT RESUSCITATE. Physical occupational therapy, out of bed encouraged
--- NOTE | 2021-06-21 09:14 | XR ---
EXAMINATION TYPE: XR chest 1V portable DATE OF EXAM: 06/21/2021 COMPARISON: Chest x-ray dated 06/19/2021, chest CT 06/19/2021 HISTORY: Covid, congestive heart failure TECHNIQUE: Single frontal view of the chest is obtained. FINDINGS: Displaced proximal right humeral fracture is present. Evidence of remote trauma to the pro ximal left humerus is favored. There are overlying leads. There is an underlying scoliosis. Heart may be enlarged, patient is rotated. Bilateral prominence interstitium, patchy density present within th e lungs. Left hemidiaphragm is obscured. There is no evident pneumothorax. There may be kyphosis, ela g volumes appear small. IMPRESSION: Correlate for pneumonia, edema, congestive heart failure. Pleural effusion left greater than right. Chronic right shoulder fracture.
[2021-06-21] MEDS: ALBUTEROL HFA INHALER INHALATION SCH ×4 (09:47→20:37)
--- NOTE | 2021-06-21 10:30 | P.PN ---
Subjective Patient is seen in follow-up for hyponatremia. Sitting up in chair. On oral Bumex. On 4 L is a cannula. Not a reliable historian. Denies vomiting or diarrhea. Vital signs are stable. General: The patient appeared well nourished and normally developed. HEENT: Head exam is unremarkable. LUNGS: Breath sounds decreased. HEART: Rate and Rhythm are regular. ABDOMEN: Soft, no distention. EXTREMITITES: Trace edema. Objective - Vital Signs Vital signs: Vital Signs Temp 98.2 F 06/21/21 06:24 Pulse 92 06/21/21 08:20 Resp 18 06/21/21 03:40 BP 95/56 06/21/21 08:20 Pulse Ox 96 06/21/21 08:20 Intake & Output 06/20/21 06/21/21 06/21/21 18:59 06:59 18:59 Intake Total 450 400 Balance 450 400 Weight 55 kg Intake: Intake, IV Titration 100 Amount cefTRIAXone 1 gm In 100 Sodium Chloride 0.9% 50 ml @ 100 mls/hr IVPB Q24HR [facility] Rx#:[id number] Oral 350 400 Other: Voiding Method Bedside Commode Bedside Commode # Voids 4 2 - Labs CBC & Chem 7: 06/20/21 06:10 06/20/21 06:10 Labs: Abnormal Lab Results - Last 24 Hours (Table) 06/20/21 Range/Units 06:10 BUN 27.3 H (9.0-27.0) mg/dL BUN/Creatinine Ratio 33.87 H (12.00-20.00) Ratio Calcium 7.7 L (8.7-10.3) mg/dL AST 36 H (13-35) U/L Alkaline Phosphatase 153 H (41-126) U/L Total Protein 5.2 L (6.2-8.2) g/dL Albumin 3.1 L (3.8-4.9) g/dL Albumin/Globulin Ratio 1.55 L (1.60-3.17) g/dL Microbiology - Last 24 Hours (Table) 06/19/21 19:54 Blood Culture - Preliminary Blood No Growth after 24 hours 06/20/21 05:45 Group A Strep Throat Culture - Preliminary Throat Assessment and Plan Plan: Assessment: 1. Hypervolemic hyponatremia. Improved with diuresis. Sodium level 135 yesterday. 2. Acute hypoxic respiratory failure. 3. COVID-19 infection. 4. Fluid overload. Improved. Plan: Dose of Bumex decreased and now on oral. 1500 mL fluid restriction. Encourage oral intake. Morning labs pending.
[2021-06-21] MEDS: BUMETANIDE 1 MG TAB PO SCH (10:36)
[2021-06-21 11:12] LABS: HCT 42.2 % (37.2-46.3); HGB 12.3 g/dL (12.0-15.0); MCH 31.4 pg (27.0-32.0); MCHC 29.1 g/dL (32.0-37.0); MCV 107.7 fL (80.0-97.0); Mean Platelet Volume 10.6 fL (9.5-12.2); Platelet Count 302 X 10*3/uL (140-440); RBC 3.92 X 10*6/uL (4.10-5.20); RDW 14.4 % (11.5-14.5); WBC 18.63 X 10*3/uL (4.50-10.00)
[2021-06-21] MEDS: AZITHROMYCIN 250 MG TAB PO SCH (12:41)
--- NOTE | 2021-06-21 12:41 | P.PN ---
Subjective Progress Note Date: 06/21/21 Principal diagnosis: Dyspnea, hypoxia, COVID-19 89-year-old female patient with no significant medical history, patient takes no home medications, and only uses homeopathic remedies. Patient was brought into the hospital on 06/19/2021 by EMS from home with worsening COVID-19 symptoms. Patient had been symptomatic for 7-8 days prior to presentation. She is complaining of shortness of breath, cough. No reports of fever. No nausea or vomiting, no diarrhea. She allegedly received monoclonal antibody infusion after testing positive brought in by the EMS. Her O2 saturations at home on her home pulse ox device were out on 70%. In the emergency department her pulse ox was 85% and she was placed on supplemental oxygen. Chest x-ray showed changes and cardiomegaly with small tiny bilateral pleural effusions and bibasilar opacities. Her laboratory evaluation revealed leukocytosis with white blood cell count of 19.9, hemoglobin of 13.7, d-dimer was 2.24, INR was 0.9, sodium was 130, potassium is 4.4, chloride was 97, CO2 is 25, B1 is 33, creatinine was 0.84, AST was 61, ALT was 33, alkaline phosphatase was 160, troponin was less than 0.012, proBNP was 1490, Procalcitonin level was negative at 0.24, patient tested positive for COVID-19, group A strep was negative. CT angiogram was completed showing no evidence of pulmonary embolism, bilateral extensive pulmona ry infiltrates and atelectasis, bilateral pleural effusions, cardiomegaly, and evidence of chronic congestive heart failure. EKG showed sinus tachycardia with evidence of inferior infarct of undetermined age. Patient was started on IV diuretics with Bumex, her serum sodium has improved with diuresis. Echocardiogram has been obtained showing normal EF of 55-60%, mild aortic stenosis, mild MR, mild TR, mild pulmonary hypertension with right ventricular systolic pressure of 41.23 mmHg. In addition patient has unstageable decubitus ulcers on bilateral buttocks. Wound services 7 consulted. She may need orthopedic evaluation for right arm pain, limited range of motion, bruising, and swelling secondary to history of a fall 2 weeks ago on a slippery pavement On 06/21/2021 patient seen in follow-up on medical surgical floor, today she is up in the chair, she is awake and alert, oriented 3, she is breathing quite comfortably, she remains on 4 L of oxygen and the pulse ox is 95-97%, she's been afebrile, hemodynamically she has been stable, no cough, no chest discomfort, lung sounds reveal some basilar crackles, she continues on diuretics with Bumex 0.5 mg, she is diuresing, although not fluid balance is difficult to estimate as there is no accurate intake and output recorded. Follow-up chest x-ray today showing displayed proximal right humeral fracture. Evidence of permanent b ilateral interstitium, congestive heart failure, and left greater than right pleural effusions. Yesterday's ultrasound of the chest did not reveal a sizable pleural effusion pocket for drainage. Patient remains on empiric antibiotics for possibility of underlying bacterial pneumonia, today's labs have been reviewed showing white blood cell count of 18.6, hemoglobin of 12.3, electrolytes and renal profile still pending for today, Legionella urine antigen is negative, group A strep. Group A strep culture has been sent and pending at this time, blood culture has been negative. Clinically she's been stable, she looks much more comfortable today, breathing comfortably. As far as COVID-19 treatments she was outside the window for Remdesivir, and she continues on Decadron 6 mg daily, and prophylactic Lovenox. Objective - Vital Signs Vital signs: Vital Signs Temp 98.4 F 06/21/21 10:00 Pulse 99 06/21/21 10:00 Resp 18 06/21/21 10:00 BP 99/55 06/21/21 10:00 Pulse Ox 95 06/21/21 10:00 Intake & Output 06/20/21 06/21/21 06/21/21 18:59 06:59 18:59 Intake Total 450 400 Balance 450 400 Weight 55 kg Intake: Intake, IV Titration 100 Amount cefTRIAXone 1 gm In 100 Sodium Chloride 0.9% 50 ml @ 100 mls/hr IVPB Q24HR [facility] Rx#:[id number] Oral 350 400 Other: Voiding Method Bedside Commode Bedside Commode # Voids 4 2 - Exam GENERAL EXAM: Alert, hard of hearingr, 89-year-old white female on 4 L of oxygen and the pulse ox 95%, sitting up in the chair comfortable in no apparent distress. HEAD: Normocephalic/atraumatic. EYES: Normal reaction of pupils, equal size. Conjunctiva pink, sclera white. NOSE: Clear with pink turbinates. THROAT: No erythema or exudates. NECK: No masses, no JVD, no thyroid enlargement, no adenopathy. CHEST: No chest wall deformity. Symmetrical expansion. LUNGS: Equal air entry with diminished breath sounds and bilateral crackles CVS: Regular rate and rhythm, normal S1 and S2, no gallops, no murmurs, no rubs ABDOMEN: Soft, nontender. No hepatosplenomegaly, normal bowel sounds, no guarding or rigidity. EXTREMITIES: No clubbing, no edema, no cyanosis, 2+ pulses and upper and lower extremities. MUSCULOSKELETAL: Muscle strength and tone normal. SPINE: No scoliosis or deformity SKIN: No rashes, unstageable decubitus ulcers on bilateral buttocks CENTRAL NERVOUS SYSTEM: Alert and oriented -3. No focal deficits, tone is normal in all 4 extremities. PSYCHIATRIC: Alert and oriented -3. Appropriate affect. Intact judgment and insight. - Labs CBC & Chem 7: 06/21/21 07:11 06/20/21 06:10 Labs: Abnormal Lab Results - Last 24 Hours (Table) 06/21/21 Range/Units 07:11 WBC 18.63 H (4.50-10.00) X 10*3/uL RBC 3.92 L (4.10-5.20) X 10*6/uL MCV 107.7 H (80.0-97.0) fL MCHC 29.1 L (32.0-37.0) g/dL Microbiology - Last 24 Hours (Table) 06/19/21 19:54 Blood Culture - Preliminary Blood No Growth after 24 hours 06/20/21 05:45 Group A Strep Throat Culture - Preliminary Throat Assessment and Plan Plan: Assessment: #1. Acute hypoxic respiratory failure, multifactorial, related to acute exacerbation of chronic CHF with diastolic dysfunction and acute COVID-19 infection. Patient is a non-vaccinated adult, allegedly received monoclonal antibodies given by EMS. Patient presented with 7-8 day history of symptoms prior to presentation, she is outside the window for Remdesivir. We'll continue supportive treatment, and patient is on diuretics, steroids, and prophylactic anticoagulation. #2. Acute exacerbation of chronic CHF, diastolic dysfunction, newly diagnosed #3. Hyponatremia, likely hypovolemic improving with IV diuresis #4. Elevated d-dimer with no CT evidence of pulmonary embolism #5. Recent fall with trauma to the right arm with swelling, bruising and a limited range of motion #6. Chronic bilateral lower extremity DVTs #7. Decubitus ulcer, unstageable, on bilateral buttocks present on presentation, services are following #8. Never smoker #9. Osteoporosis #10. Leucocytosis, with mildly elevated pro calcitonin, patient is covered with empiric azithromycin and Rocephin #11. Chronic DVTs in bilateral lower extremities Plan: Clinically patient has remained stable, breathing is improving Continues on oral diuretics, Decadron and prophylactic Lovenox Today's chest x-ray continues to show prominent interstitium, and left greater than right pleural effusions Ultrasound the chest did not show sizable pleural effusion pocket for drainage We'll continue medical treatment Wean FiO2 to maintain O2 saturations at or above 90% Obtain daily weight, and accurate intake and output We'll obtain inflammatory markers, follow-up d-dimer I performed a history & physical examination of the patient and discussed their management with my nurse practitioner, Rosalinda Michele. I reviewed the nurse practitioner's note and agree with the documented findings and plan of care. Lung sounds are positive for marshall crackles at the lung mena. The findings and the impression was discussed with the patient. I attest to the documentation by the nurse practitioner. Time with Patient: Less than 30
[2021-06-21 12:46] LABS: African American GFR (CKD) 71.7 (60.0-200.0); Albumin 3.1 g/dL (3.8-4.9); Albumin/Globulin Ratio 1.56 (1.60-3.17); Anion Gap 11.6 mmol/L (10.00-18.00); BUN/Creat Ratio 32.02 Ratio (12.00-20.00); Blood Urea Nitrogen 26.8 mg/dL (9.0-27.0); C Reactive Protein 0.9 mg/dL (0.00-0.80); Calcium 7.9 mg/dL (8.7-10.3); Carbon Dioxide 27.1 mmol/L (20.0-27.5); Magnesium 2.4 mg/dL (1.5-2.4); Non-African American GFR(CKD) 61.9 (60.0-200.0); Phosphorus 3.4 mg/dL (2.4-5.1); Potassium 3.8 mmol/L (3.5-5.5); Total Bilirubin 0.5 mg/dL (0.30-1.20); Total Protein 5.1 g/dL (6.2-8.2)
[2021-06-21] MEDS: CEFDINIR 300 MG CAP PO SCH (19:43)
[2021-06-22] MEDS: ZINC SULFATE 220 MG CAP PO SCH (07:43)
[2021-06-22] MEDS: CEFDINIR 300 MG CAP PO SCH ×2 (07:43→19:54)
[2021-06-22] MEDS: CHOLECALCIFEROL 25 MCG (1000 IU) TABLET PO SCH (07:43)
[2021-06-22] MEDS: ASCORBIC ACID 500 MG TAB PO SCH (07:43)
[2021-06-22] MEDS: DEXAMETHASONE SOD PHOSPHATE 10 MG/ML 1 ML VIAL IV SCH (07:43)
[2021-06-22] MEDS: ENOXAPARIN 40 MG/0.4 ML SYRINGE SQ SCH (07:43)
[2021-06-22] MEDS: BUMETANIDE 1 MG TAB PO SCH (07:44)
[2021-06-22] MEDS: AZITHROMYCIN 250 MG TAB PO SCH (07:44)
[2021-06-22] MEDS: ALBUTEROL HFA INHALER INHALATION SCH ×4 (08:56→22:16)
[2021-06-22 09:21] LABS: HCT 43.8 % (37.2-46.3); HGB 12.9 g/dL (12.0-15.0); MCH 31.6 pg (27.0-32.0); MCHC 29.5 g/dL (32.0-37.0); MCV 107.4 fL (80.0-97.0); Mean Platelet Volume 10.8 fL (9.5-12.2); Platelet Count 286 X 10*3/uL (140-440); RBC 4.08 X 10*6/uL (4.10-5.20); RDW 14.3 % (11.5-14.5); WBC 18.24 X 10*3/uL (4.50-10.00)
[2021-06-22 10:19] LABS: Anion Gap 11.5 mmol/L (10.00-18.00); BUN/Creat Ratio 36.57 Ratio (12.00-20.00); Blood Urea Nitrogen 25.6 mg/dL (9.0-27.0); Calcium 8.3 mg/dL (8.7-10.3); Carbon Dioxide 28.5 mmol/L (20.0-27.5); Magnesium 2.5 mg/dL (1.5-2.4); Non-African American GFR(CKD) 76.8 (60.0-200.0); Potassium 3.7 mmol/L (3.5-5.5)
--- NOTE | 2021-06-22 11:44 | P.PN ---
Subjective Principal diagnosis: Respiratory failure, COVID-19 pneumonitis 89-year-old female admitted with respiratory failure, confusion. Bilateral pneumonia signs of fluid overload COVID-19. Patient is on vaccinated. Per family she does not believe in traditional medicine and does not see doctors. Pt is feeling bettr. Patient's breathing is better. Stable oxygen demand. She is up in the chair. No abdominal pain no chest pain. Objective - Vital Signs Vital signs: Vital Signs Temp 98.5 F 06/22/21 10:51 Pulse 99 06/22/21 10:51 Resp 16 06/22/21 10:51 BP 118/76 06/22/21 10:51 Pulse Ox 96 06/22/21 10:51 Intake & Output 06/21/21 06/22/21 06/22/21 18:59 06:59 18:59 Intake Total 400 250 250 Output Total 150 Balance 400 100 250 Weight 55 kg 55 kg Intake: Oral 400 250 250 Output: Urine 150 Other: Voiding Method Bedside Commode Bedside Commode # Voids 2 # Bowel Movements 1 - Exam Patient was awake and alert following commands participating in conversation appropriately Head and neck: normocephalic chronic that is clear moist mucous membranes no neck masses, neck veins distention Lungs: Diminished breath sounds with diffuse rhonchi and basilar crackles, expiratory wheezing Cardiovascular: regular S1-S2 Abdomen: Soft nontender nondistended no organomegaly no flank tenderness Extremities: 1+ pitting edema warm well perfused no cyanosis Neurological: No focal motor deficits, cranial nerves intact no asterixis Muscular skeletal: She does have some discomfort in the right shoulder however no swelling no swelling or other joints - Labs CBC & Chem 7: 06/22/21 06:29 06/22/21 06:29 Labs: Abnormal Lab Results - Last 24 Hours (Table) 06/21/21 06/21/21 06/21/21 Range/Units 07:11 18:14 18:14 WBC (4.50-10.00) X 10*3/uL RBC (4.10-5.20) X 10*6/uL MCV (80.0-97.0) fL MCHC (32.0-37.0) g/dL D-Dimer 1.81 H (<0.60) mg/L FEU Carbon Dioxide (20.0-27.5) mmol/L BUN/Creatinine Ratio 32.02 H (12.00-20.00) Ratio Calcium 7.9 L (8.7-10.3) mg/dL Magnesium (1.5-2.4) mg/dL Alkaline Phosphatase 137 H (41-126) U/L C-Reactive Protein 0.90 H 1.3 H (0.00-0.80) mg/dL Total Protein 5.1 L (6.2-8.2) g/dL Albumin 3.1 L (3.8-4.9) g/dL Albumin/Globulin Ratio 1.56 L (1.60-3.17) g/dL 06/22/21 06/22/21 Range/Units 06:29 06:29 WBC 18.24 H (4.50-10.00) X 10*3/uL RBC 4.08 L (4.10-5.20) X 10*6/uL MCV 107.4 H (80.0-97.0) fL MCHC 29.5 L (32.0-37.0) g/dL D-Dimer (<0.60) mg/L FEU Carbon Dioxide 28.5 H (20.0-27.5) mmol/L BUN/Creatinine Ratio 36.57 H (12.00-20.00) Ratio Calcium 8.3 L (8.7-10.3) mg/dL Magnesium 2.5 H (1.5-2.4) mg/dL Alkaline Phosphatase (41-126) U/L C-Reactive Protein (0.00-0.80) mg/dL Total Protein (6.2-8.2) g/dL Albumin (3.8-4.9) g/dL Albumin/Globulin Ratio (1.60-3.17) g/dL Microbiology - Last 24 Hours (Table) 06/19/21 19:54 Blood Culture - Preliminary Blood No Growth after 48 hours 06/20/21 10:37 Blood Culture - Preliminary Blood No Growth after 24 hours Assessment and Plan Plan: #Acute hypoxic respiratory failure Multifactorial:Likely combination of COVID-19 pneumonia, possibility of underlying secondary bacterial Bronchopneumonia and CHF. Chest x-ray: Bilateral pneumonia CTA chest: No pulmonary embolism, bilateral pleural effusion, bilateral pneumonia and pulmonary edema CHF Onset of symptoms 5 days prior to the admission Date of COVID-19 diagnosis: 06/15/21 Unvaccinated D-dimer 2.24 CRP pending Pro calcitonin 0.24 ProBNP elevated Troponin with normal limits Ordered Mycoplasma IgM, MRSA nasal screen and legionella urine antigen Start bronchodilators, dexamethasone Continue Bumex Ceftriaxone and Zithromax started 06/19/21 Changed or Supplemental oxygen Pulmonary consultation Incentive spirometer Upright position Multivitamin ordered Echocardiogram: Preserved EF Doppler lower extremities chronic DVT, no acute DVT We will order physical and occupational therapy, encourage out of bed #SIRS rule out sepsis Leukocytosis Start empirical antibiotics Blood cultures and sputum cultures #Acute toxic metabolic encephalopathy Due to hypoxia, acute illness metabolic derangements infection Improving Continue the orientation #Hyponatremia Improved Nephrology follow #Severe protein calorie malnutrition, osteoporosis Obtain nutrition consultation, encourage protein intake DVT prophylaxis: Subcu Lovenox Patient is DO NOT RESUSCITATE. Physical occupational therapy, out of bed encouraged Spoke with the patient's daughter and updated her on plan of care.
--- NOTE | 2021-06-22 12:50 | P.PN ---
Subjective Progress Note Date: 06/22/21 Principal diagnosis: Dyspnea, hypoxia, COVID-19 89-year-old female patient with no significant medical history, patient takes no home medications, and only uses homeopathic remedies. Patient was brought into the hospital on 06/19/2021 by EMS from home with worsening COVID-19 symptoms. Patient had been symptomatic for 7-8 days prior to presentation. She is complaining of shortness of breath, cough. No reports of fever. No nausea or vomiting, no diarrhea. She allegedly received monoclonal antibody infusion after testing positive brought in by the EMS. Her O2 saturations at home on her home pulse ox device were out on 70%. In the emergency department her pulse ox was 85% and she was placed on supplemental oxygen. Chest x-ray showed changes and cardiomegaly with small tiny bilateral pleural effusions and bibasilar opacities. Her laboratory evaluation revealed leukocytosis with white blood cell count of 19.9, hemoglobin of 13.7, d-dimer was 2.24, INR was 0.9, sodium was 130, potassium is 4.4, chloride was 97, CO2 is 25, B1 is 33, creatinine was 0.84, AST was 61, ALT was 33, alkaline phosphatase was 160, troponin was less than 0.012, proBNP was 1490, Procalcitonin level was negative at 0.24, patient tested positive for COVID-19, group A strep was negative. CT angiogram was completed showing no evidence of pulmonary embolism, bilateral extensive pulmona ry infiltrates and atelectasis, bilateral pleural effusions, cardiomegaly, and evidence of chronic congestive heart failure. EKG showed sinus tachycardia with evidence of inferior infarct of undetermined age. Patient was started on IV diuretics with Bumex, her serum sodium has improved with diuresis. Echocardiogram has been obtained showing normal EF of 55-60%, mild aortic stenosis, mild MR, mild TR, mild pulmonary hypertension with right ventricular systolic pressure of 41.23 mmHg. In addition patient has unstageable decubitus ulcers on bilateral buttocks. Wound services 7 consulted. She may need orthopedic evaluation for right arm pain, limited range of motion, bruising, and swelling secondary to history of a fall 2 weeks ago on a slippery pavement On 06/21/2021 patient seen in follow-up on medical surgical floor, today she is up in the chair, she is awake and alert, oriented 3, she is breathing quite comfortably, she remains on 4 L of oxygen and the pulse ox is 95-97%, she's been afebrile, hemodynamically she has been stable, no cough, no chest discomfort, lung sounds reveal some basilar crackles, she continues on diuretics with Bumex 0.5 mg, she is diuresing, although not fluid balance is difficult to estimate as there is no accurate intake and output recorded. Follow-up chest x-ray today showing displayed proximal right humeral fracture. Evidence of permanent b ilateral interstitium, congestive heart failure, and left greater than right pleural effusions. Yesterday's ultrasound of the chest did not reveal a sizable pleural effusion pocket for drainage. Patient remains on empiric antibiotics for possibility of underlying bacterial pneumonia, today's labs have been reviewed showing white blood cell count of 18.6, hemoglobin of 12.3, electrolytes and renal profile still pending for today, Legionella urine antigen is negative, group A strep. Group A strep culture has been sent and pending at this time, blood culture has been negative. Clinically she's been stable, she looks much more comfortable today, breathing comfortably. As far as COVID-19 treatments she was outside the window for Remdesivir, and she continues on Decadron 6 mg daily, and prophylactic Lovenox. On 06/22/2021 patient seen in follow-up on medical surgical floor, she is awake, oriented 3, breathing quite comfortably, she sits up in a recliner, currently on 4 L of oxygen pulse ox is 96%, FiO2 has since been dropped to 3 L we'll continue to wean to keep O2 sats ration is at or above 90%, she's been afebrile, blood pressure has been stable. This had no acute events overnight. No worsening dyspnea, occasional cough, no phlegm production. No complaints of chest discomfort. Today's labs have been reviewed, white blood cell count is stable at 18.2, hemoglobin is 12.9, d-dimer is improving and is down to 1.8, sodium is 143, potassium 3.7, chloride is 103, BUN is 25, creatinine 0.7, CRP was 1.3 on yesterday's labs, LDH from 06/21/2021 was within normal limits at 213 . Patient remains on oral Bumex at 0.5 mg daily, Decadron 6 mg daily, Lovenox 40 mg daily in addition to COVID-19 vitamins. Remains on antibiotics in the form of azithromycin and Rocephin, Legionella urine antigen was negative for blood and throat cultures for group A strep shown no growth thus far. Patient has been get not been using the bedside commode, she stable on her feet, clinically she looks very good, her appetite is improving. Denies any worsening cough, or dyspnea, 2 requirements are improving Objective - Vital Signs Vital signs: Vital Signs Temp 98.5 F 06/22/21 10:51 Pulse 99 06/22/21 10:51 Resp 16 06/22/21 10:51 BP 118/76 06/22/21 10:51 Pulse Ox 96 06/22/21 10:51 Intake & Output 06/21/21 06/22/21 06/22/21 18:59 06:59 18:59 Intake Total 400 250 250 Output Total 150 Balance 400 100 250 Weight 55 kg 55 kg Intake: Oral 400 250 250 Output: Urine 150 Other: Voiding Method Bedside Commode Bedside Commode # Voids 2 # Bowel Movements 1 - Exam GENERAL EXAM: Alert, hard of hearingr, 89-year-old white female on 4 L of oxygen and the pulse ox 96%, sitting up in the chair comfortable in no apparent distress. HEAD: Normocephalic/atraumatic. EYES: Normal reaction of pupils, equal size. Conjunctiva pink, sclera white. NOSE: Clear with pink turbinates. THROAT: No erythema or exudates. NECK: No masses, no JVD, no thyroid enlargement, no adenopathy. CHEST: No chest wall deformity. Symmetrical expansion. LUNGS: Equal air entry with diminished breath sounds and bilateral crackles CVS: Regular rate and rhythm, normal S1 and S2, no gallops, no murmurs, no rubs ABDOMEN: Soft, nontender. No hepatosplenomegaly, normal bowel sounds, no guarding or rigidity. EXTREMITIES: No clubbing, 1+ lower extremity edema, no cyanosis, 2+ pulses and upper and lower extremities. MUSCULOSKELETAL: Muscle strength and tone normal. SPINE: No scoliosis or deformity SKIN: No rashes, unstageable decubitus ulcers on bilateral buttocks CENTRAL NERVOUS SYSTEM: Alert and oriented -3. No focal deficits, tone is n ormal in all 4 extremities. PSYCHIATRIC: Alert and oriented -3. Appropriate affect. Intact judgment and insight. - Labs CBC & Chem 7: 06/22/21 06:29 06/22/21 06:29 Labs: Abnormal Lab Results - Last 24 Hours (Table) 06/21/21 06/21/21 06/22/21 Range/Units 18:14 18:14 06:29 WBC 18.24 H (4.50-10.00) X 10*3/uL RBC 4.08 L (4.10-5.20) X 10*6/uL MCV 107.4 H (80.0-97.0) fL MCHC 29.5 L (32.0-37.0) g/dL D-Dimer 1.81 H (<0.60) mg/L FEU Carbon Dioxide (20.0-27.5) mmol/L BUN/Creatinine Ratio (12.00-20.00) Ratio Calcium (8.7-10.3) mg/dL Magnesium (1.5-2.4) mg/dL C-Reactive Protein 1.3 H (<1.0) mg/dL 06/22/21 Range/Units 06:29 WBC (4.50-10.00) X 10*3/uL RBC (4.10-5.20) X 10*6/uL MCV (80.0-97.0) fL MCHC (32.0-37.0) g/dL D-Dimer (<0.60) mg/L FEU Carbon Dioxide 28.5 H (20.0-27.5) mmol/L BUN/Creatinine Ratio 36.57 H (12.00-20.00) Ratio Calcium 8.3 L (8.7-10.3) mg/dL Magnesium 2.5 H (1.5-2.4) mg/dL C-Reactive Protein (<1.0) mg/dL Microbiology - Last 24 Hours (Table) 06/19/21 19:54 Blood Culture - Preliminary Blood No Growth after 48 hours 06/20/21 10:37 Blood Culture - Preliminary Blood No Growth after 24 hours Assessment and Plan Plan: Assessment: #1. Acute hypoxic respiratory failure, multifactorial, related to acute exacerbation of chronic CHF with diastolic dysfunction and acute COVID-19 inf ection. Patient is a non-vaccinated adult, allegedly received monoclonal antibodies given by EMS. Patient presented with 7-8 day history of symptoms prior to presentation, she is outside the window for Remdesivir. We'll continue supportive treatment, and patient is on diuretics, steroids, and prophylactic anticoagulation. #2. Acute exacerbation of chronic CHF, diastolic dysfunction, newly diagnosed #3. Hyponatremia, likely hypovolemic improving with IV diuresis #4. Elevated d-dimer with no CT evidence of pulmonary embolism, improving #5. Recent fall with trauma to the right arm with swelling, bruising and a limited range of motion #6. Chronic bilateral lower extremity DVTs #7. Decubitus ulcer, unstageable, on bilateral buttocks present on presentation, services are following #8. Never smoker #9. Osteoporosis #10. Leucocytosis, with mildly elevated pro calcitonin, patient is covered with empiric azithromycin and Rocephin Plan: Clinically patient's has been stable, without worsening dyspnea, oxygen demand is improving, she is currently down to 3 L She continues on oral diuretics, Decadron, prophylactic Lovenox Clinically she seems to be improving, she is tolerating activity, she's been getting up in the chair, Continue to wean FiO2 She could be considered for discharge home however the family is trying to decide arrangements for assisting and supervision at home I performed a history & physical examination of the patient and discussed their management with my nurse practitioner, Rosalinda Michele. I reviewed the nurse practitioner's note and agree with the documented findings and plan of care. Lung sounds are positive for marshall crackles at the lung mena. The findings and the impression was discussed with the patient. I attest to the documentation by the nurse practitioner. Time with Patient: Less than 30
--- NOTE | 2021-06-22 15:41 | P.PN ---
Progress Note - Text Progress Note Date: 06/22/21 The patient's chart was reviewed and I spoke with the nursing staff. The patient is currently in the hospital with COVID. She fell about 1 month ago and fractured her right proximal humerus. She is being treated by an orthopedic surgeon out of the area. The patient states she does not need to wear a sling according to that ortho surgeon. X-rays and the case were discussed with Dr. Ann. We are recommending activities as tolerated with the right arm at waist level only. Sling only for comfort if needed. No physical therapy on the right arm at this time. The patient will follow up with her orthopedic surgeon as previously scheduled upon discharge from the hospital.
[2021-06-23] MEDS: ALBUTEROL HFA INHALER INHALATION SCH ×4 (07:26→20:28)
[2021-06-23] MEDS: AZITHROMYCIN 250 MG TAB PO SCH (09:11)
[2021-06-23] MEDS: CHOLECALCIFEROL 25 MCG (1000 IU) TABLET PO SCH (09:11)
[2021-06-23] MEDS: BUMETANIDE 1 MG TAB PO SCH (09:11)
[2021-06-23] MEDS: DEXAMETHASONE SOD PHOSPHATE 10 MG/ML 1 ML VIAL IV SCH (09:11)
[2021-06-23] MEDS: ASCORBIC ACID 500 MG TAB PO SCH (09:11)
[2021-06-23] MEDS: ZINC SULFATE 220 MG CAP PO SCH (09:11)
[2021-06-23] MEDS: ENOXAPARIN 40 MG/0.4 ML SYRINGE SQ SCH (09:11)
[2021-06-23] MEDS: CEFDINIR 300 MG CAP PO SCH ×2 (09:11→20:34)
[2021-06-23 10:47] LABS: HCT 44.7 % (34.0-46.0); HGB 13.7 gm/dL (11.4-16.0); Hypochromasia Marked; MCH 32.8 pg (25.0-35.0); MCHC 30.7 g/dL (31.0-37.0); MCV 106.7 fL (80.0-100.0); Macrocytosis Moderate; Mean Platelet Volume 8.1; Platelet Count 270 k/uL (150-450); RBC 4.19 m/uL (3.80-5.40); RDW 13.7 % (11.5-15.5); WBC 15.5 k/uL (3.8-10.6)
[2021-06-23 11:07] LABS: African American GFR (CKD) 81 (>60 ml/min/1.73 sqM); Anion Gap 4 mmol/L; Blood Urea Nitrogen 29 mg/dL (7-17); Calcium 8.1 mg/dL (8.4-10.2); Carbon Dioxide 37 mmol/L (22-30); Chloride 99 mmol/L (98-107); Glucose 105 mg/dL (74-99); Non-African American GFR(CKD) 70 (>60 ml/min/1.73 sqM); Potassium 3.5 mmol/L (3.5-5.1); Sodium 140 mmol/L (137-145)
--- NOTE | 2021-06-23 12:10 | P.PN ---
Subjective Principal diagnosis: Respiratory failure, COVID-19 pneumonitis 89-year-old female admitted with respiratory failure, confusion. Bilateral pneumonia signs of fluid overload COVID-19. Patient is on vaccinated. Per family she does not believe in traditional medicine and does not see doctors. Clinically about the same. Patient states that she is continues to feel better. She is on 4 L nasal cannula. She is up in the chair. No abdominal pain nausea or vomiting. Appetite improving. Objective - Vital Signs Vital signs: Vital Signs Temp 97.9 F 06/23/21 09:34 Pulse 86 06/23/21 09:34 Resp 17 06/23/21 09:34 BP 105/70 06/23/21 09:34 Pulse Ox 97 06/23/21 09:34 Intake & Output 06/22/21 06/23/21 06/23/21 18:59 06:59 18:59 Intake Total 500 Balance 500 Intake: Oral 500 Other: Voiding Method Bedside Commode Bedside Commode # Voids 2 # Bowel Movements 0 - Exam Patient was awake and alert following commands participating in conversation appropriately Head and neck: normocephalic chronic that is clear moist mucous membranes no neck masses, neck veins distention Lungs: Diminished breath sounds with diffuse rhonchi and basilar crackles, expiratory wheezing Cardiovascular: regular S1-S2 Abdomen: Soft nontender nondistended no organomegaly no flank tenderness Extremities: 1+ pitting edema warm well perfused no cyanosis Neurological: No focal motor deficits, cranial nerves intact no asterixis Muscular skeletal: She does have some discomfort in the right shoulder however no swelling no swelling or other joints - Labs CBC & Chem 7: 06/23/21 09:45 06/23/21 09:45 Labs: Abnormal Lab Results - Last 24 Hours (Table) 06/23/21 06/23/21 Range/Units 09:45 09:45 WBC 15.5 H (3.8-10.6) k/uL MCV 106.7 H (80.0-100.0) fL MCHC 30.7 L (31.0-37.0) g/dL Carbon Dioxide 37 H (22-30) mmol/L BUN 29 H (7-17) mg/dL Glucose 105 H (74-99) mg/dL Calcium 8.1 L (8.4-10.2) mg/dL Microbiology - Last 24 Hours (Table) 06/19/21 19:54 Blood Culture - Preliminary Blood No Growth after 72 hours 06/20/21 05:45 Group A Strep Throat Culture - Final Throat 06/20/21 10:37 Blood Culture - Preliminary Blood No Growth after 48 hours Assessment and Plan Plan: #Acute hypoxic respiratory failure Multifactorial:Likely combination of COVID-19 pneumonia, possibility of underlying secondary bacterial Bronchopneumonia and CHF. Chest x-ray: Bilateral pneumonia CTA chest: No pulmonary embolism, bilateral pleural effusion, bilateral pneumonia and pulmonary edema CHF Onset of symptoms 5 days prior to the admission Date of COVID-19 diagnosis: 06/15/21 Unvaccinated D-dimer 2.24 CRP pending Pro calcitonin 0.24 ProBNP elevated Troponin with normal limits Ordered Mycoplasma IgM, MRSA nasal screen and legionella urine antigen Start bronchodilators, dexamethasone Continue Bumex Ceftriaxone and Zithromax started 06/19/21 Changed or Supplemental oxygen Pulmonary consultation Incentive spirometer Upright position Multivitamin ordered Echocardiogram: Preserved EF Doppler lower extremities chronic DVT, no acute DVT We will order physical and occupational therapy, encourage out of bed #SIRS rule out sepsis Leukocytosis Start empirical antibiotics Blood cultures and sputum cultures #Acute toxic metabolic encephalopathy Due to hypoxia, acute illness metabolic derangements infection Improving Continue the orientation #Hyponatremia Improved Nephrology follow #Severe protein calorie malnutrition, osteoporosis Obtain nutrition consultation, encourage protein intake DVT prophylaxis: Subcu Lovenox Patient is DO NOT RESUSCITATE. Physical occupational therapy, out of bed encouraged Spoke with the patient's daughter and updated her on plan of care. Once the patient is a relation for home oxygen and discharged to intermediate facility when bed available
[2021-06-24] MEDS: ALBUTEROL HFA INHALER INHALATION SCH ×4 (07:20→19:56)
[2021-06-24] MEDS: AZITHROMYCIN 250 MG TAB PO SCH (09:38)
[2021-06-24] MEDS: BUMETANIDE 1 MG TAB PO SCH (09:38)
[2021-06-24] MEDS: ZINC SULFATE 220 MG CAP PO SCH (09:39)
[2021-06-24] MEDS: ASCORBIC ACID 500 MG TAB PO SCH (09:39)
[2021-06-24] MEDS: ENOXAPARIN 40 MG/0.4 ML SYRINGE SQ SCH (09:39)
[2021-06-24] MEDS: CEFDINIR 300 MG CAP PO SCH ×2 (09:39→20:00)
[2021-06-24] MEDS: DEXAMETHASONE SOD PHOSPHATE 10 MG/ML 1 ML VIAL IV SCH (09:39)
[2021-06-24] MEDS: CHOLECALCIFEROL 25 MCG (1000 IU) TABLET PO SCH (09:40)
--- NOTE | 2021-06-24 10:01 | P.PN ---
Subjective Principal diagnosis: Respiratory failure, COVID-19 pneumonitis 89-year-old female admitted with respiratory failure, confusion. Bilateral pneumonia signs of fluid overload COVID-19. Patient is on vaccinated. Per family she does not believe in traditional medicine and does not see doctors. Continue to improve. He remains on 4 L nasal cannula. No respiratory complaints. No chest pain no nausea no vomiting no abdominal pain. Objective - Vital Signs Vital signs: Vital Signs Temp 98.5 F 06/24/21 09:37 Pulse 95 06/24/21 09:37 Resp 17 06/24/21 09:37 BP 99/61 06/24/21 09:37 Pulse Ox 95 06/24/21 09:37 Intake & Output 06/23/21 06/24/21 06/24/21 18:59 06:59 18:59 Output Total 100 Balance -100 Output: Urine 100 Other: Voiding Method Bedside Commode Bedside Commode Bedside Commode # Voids 2 2 # Bowel Movements 1 1 - Exam Patient was awake and alert following commands participating in conversation appropriately Head and neck: normocephalic chronic that is clear moist mucous membranes no neck masses, neck veins distention Lungs: Diminished breath sounds with diffuse rhonchi and basilar crackles, expiratory wheezing Cardiovascular: regular S1-S2 Abdomen: Soft nontender nondistended no organomegaly no flank tenderness Extremities: 1+ pitting edema warm well perfused no cyanosis Neurological: No focal motor deficits, cranial nerves intact no asterixis Muscular skeletal: She does have some discomfort in the right shoulder however no swelling no swelling or other joints - Labs CBC & Chem 7: 06/23/21 09:45 06/23/21 09:45 Labs: Abnormal Lab Results - Last 24 Hours (Table) 06/23/21 06/23/21 06/23/21 Range/Units 09:45 09:45 19:50 WBC 15.5 H (3.8-10.6) k/uL MCV 106.7 H (80.0-100.0) fL MCHC 30.7 L (31.0-37.0) g/dL D-Dimer 1.66 H (<0.60) mg/L FEU Carbon Dioxide 37 H (22-30) mmol/L BUN 29 H (7-17) mg/dL Glucose 105 H (74-99) mg/dL Calcium 8.1 L (8.4-10.2) mg/dL Microbiology - Last 24 Hours (Table) 06/19/21 19:54 Blood Culture - Preliminary Blood No Growth after 96 hours 06/20/21 10:37 Blood Culture - Preliminary Blood No Growth after 72 hours Assessment and Plan Plan: #Acute hypoxic respiratory failure Multifactorial:Likely combination of COVID-19 pneumonia, possibility of underlying secondary bacterial Bronchopneumonia and CHF. Chest x-ray: Bilateral pneumonia CTA chest: No pulmonary embolism, bilateral pleural effusion, bilateral pneumonia and pulmonary edema CHF Onset of symptoms 5 days prior to the admission Date of COVID-19 diagnosis: 06/15/21 Unvaccinated D-dimer 2.24 Pro calcitonin 0.24 ProBNP elevated Troponin with normal limits Ordered Mycoplasma IgM, MRSA nasal screen and legionella urine antigen all negative Start bronchodilators, dexamethasone Bumex PO Ceftriaxone and Zithromax started 06/19/21 Changed to oral Cefdinir/Zithromax Supplemental oxygen Pulmonary consultation dc abtx on discharge Incentive spirometer Upright position Multivitamin ordered Echocardiogram: Preserved EF Doppler lower extremities chronic DVT, no acute DVT We will order physical and occupational therapy, encourage out of bed #SIRS rule out sepsis Leukocytosis resolved Blood cultures and sputum cultures NGTD #Acute toxic metabolic encephalopathy Due to hypoxia, acute illness metabolic derangements infection Improving Continue the orientation #Hyponatremia Improved Nephrology followed #Severe protein calorie malnutrition, osteoporosis Obtain nutrition consultation, encourage protein intake DVT prophylaxis: Subcu Lovenox Patient is DO NOT RESUSCITATE. Physical occupational therapy, out of bed encouraged Spoke with the patient's daughter and updated her on plan of care. Disposition: SNF when bed available, spoke with CM and nursing
[2021-06-25] MEDS: ALBUTEROL HFA INHALER INHALATION SCH ×2 (07:42→12:11)
[2021-06-25] MEDS: ENOXAPARIN 40 MG/0.4 ML SYRINGE SQ SCH (08:45)
[2021-06-25] MEDS: CEFDINIR 300 MG CAP PO SCH (08:46)
[2021-06-25] MEDS: ASCORBIC ACID 500 MG TAB PO SCH (08:46)
[2021-06-25] MEDS: CHOLECALCIFEROL 25 MCG (1000 IU) TABLET PO SCH (08:46)
[2021-06-25] MEDS: ZINC SULFATE 220 MG CAP PO SCH (08:46)
[2021-06-25] MEDS ORDERED: dexAMETHasone 2 MG TAB PO SCH (09:00)
[2021-06-25] MEDS ORDERED: BUMETANIDE 1 MG TAB PO SCH (09:00)
[2021-06-25 09:10] LABS: African American GFR (CKD) 75.8 (60.0-200.0); BUN/Creat Ratio 36.63 Ratio (12.00-20.00); Blood Urea Nitrogen 29.3 mg/dL (9.0-27.0); Calcium 8.3 mg/dL (8.7-10.3); Magnesium 2.4 mg/dL (1.5-2.4); Non-African American GFR(CKD) 65.4 (60.0-200.0); Potassium 3.5 mmol/L (3.5-5.5)
[2021-06-25 11:08] VITALS: BP 111/75; PULSE 88; RESP 20; TEMP 97.8
--- NOTE | 2021-06-25 14:01 | P.DS ---
<Brooks Tyson - Last Filed: 06/25/21 13:27> Providers Expected date of discharge: 06/25/21 Hospital Course: Discharge Diagnosis: Acute respiratory failure with hypoxia secondary to acute Covid 19 virus infection and acute exacerbation of chronic diastolic heart failure Acute exacerbation of chronic diastolic heart failure with EF of 55-60% Hyponatremia secondary to fluid volume overload resulting from chronic diastolic heart failure exacerbation, continue diuresis with Bumex Chronic bilateral lower extremity DVTs History of recent fall resulting in right humeral fracture, follow up outpatient with auth specialist for continued managment/treatment as previously scheduled. Acute toxic metabolic encephalopathy secondary to hypoxia and acute illness resulting from Covid 19 virus infection Severe protein calorie malnutrition, encourage protein intake Osteoporosis Decubitus ulcer bilateral buttocks, unstageable present on admission Leukocytosis, likely reactive secondary to Covid 19 virus infection. Hospital Course: Patient is a very pleasant 89-year-old female with no significant medical history as patient does not follow with primary doctor, takes no home medications, and uses only homeopathic remedies. She presented to the emergency department on 06/19/21 with a chief complaint of shortness of breath and confusion accompanied by progressive weakness with recurrent falls at home. patient was seen and fully evaluated in the emergency department and was found to be hypoxic requiring oxygen supplementation. patient positive for Covid 19 virus infection, family reports home test initially positive on 06/15/21. She was admitted under our services for acute hypoxic respiratory failure secondary to Covid 19 pneumonia and diastolic congestive heart failure exacerbation. chest x- ray was completed revealing cardiomegaly with small to tiny bilateral pleural effusions accompanied by Right upper lobe bbasilar opacities. CTA chest negative for pulmonary embolism showing bilateral extensive pulmonary infiltrates and atelectasis with bilateral pleural effusions. Bilateral lower extremity Dopplers positive for bilateral chronic DVTs in the legs no evidence of acute DVT. Echo cardiogram completed revealing an EF between 55 and 60% with mild pulmonary hypertension, mild aortic stenosis, and mild tricuspid and mitral regurgitation. patient was treated with oxygen supplementation, steroids, vitamin supplementation, and diuretics. She was initially treated empirically with IV antibiotics azithromycin and Rocephin and then transition to oral Cefdinir. Blood cultures negative showing no growth after 120 hours. Group A strep throat culture negative. Urine Legionella negative. Patient's oxygen needs have been titrated down patient on 2 L maintaining SpO2 94-95%. patient medically stable and has been evaluated by physical and occupational therapy home is recommendingSNF placement as patient has challenges with independently completing activities of daily living and basic hygiene/toileting needs. patient is medically stable for discharge at this time. Arrangements have been made for patient to be transferred to [facility], [facility], where she can continue with rehabilitation and work on strengthening/endurance prior to returning home. patient is being discharged on 2 L O2 via nasal cannula, it is advised patient to wear this at all times pending further clearance by pulmonology upon follow-up visit. Patient also to follow up with auth specialist as previously scheduled for continued management/treatment of previous right humeral fracture. Patient being discharged on Bumex 0.5 mg daily, zinc, vitamin C, vitamin D, Ventolin inhaler, and remainder of 10 day course of Decadron. . Physical Examination: Patient seen and examined at bedside this morning. patient on 2 L O2 via nasal cannula and maintaining SpO2 at 94%. Patient denies having any needs or complaints at this time including headache, lightheadedness, dizziness, chest pain, palpitations, shortness of breath, abdominal pain, nausea, numbness/tingling in extremities. Vital signs reviewed and stable. General: Nontoxic, no distress and appears stated age. Derm: Skin warm and dry, normal coloration for ethnicity. Head: Atraumatic, normocephalic and symmetric. Eyes: EOMs intact, no lid lag, and anicteric sclera Mouth: no lip lesions, mucus membranes moist Cardiovascular: regular rate and rhythm with normal S1S2, no murmur, positive posterior tibial pulses bilaterally, and cap refill < 2 seconds. Lungs: Respirations even, regular, and unlabored on 2L O2 Lung slightly diminished, no rhonchi, no rales, no wheezing, and no accessory muscle usage. Abdominal: soft, nontender to palpation, no guarding, no appreciable organomegaly Ext: ROM intact. No gross muscle atrophy, no edema, no contractures Neuro: Speech clear, face symmetrical and CN II-XII grossly intact with no noted focal neuro deficits Psych: Alert and oriented to person, place, time, and situation. Appropriate and pleasant affect. A total of 45 minutes of time were spent preparing this complex discharge summary. Patient Condition at Discharge: Stable Plan - Discharge Summary Discharge Rx Participant: No New Discharge Prescriptions: New Dexamethasone [Decadron] 6 mg PO DAILY 4 Days #4 tablet Ascorbic Acid [Vitamin C] 1,000 mg PO DAILY 30 Days #60 tab Bumetanide [BUMEX] 0.5 mg PO DAILY 30 Days #30 tab Zinc Sulfate [Orazinc] 220 mg PO DAILY 30 Days #30 cap Acetaminophen Tab [Tylenol] 650 mg PO Q6HR PRN tab PRN Reason: Mild Pain Or Fever > 100.5 Albuterol Inhaler [Ventolin Hfa Inhaler] 2 puff INHALATION RT-QID 30 Days #1 inh Continue Calcium Citrate 600mg Tablet 2 tab PO DAILY Cholecalciferol [Vitamin D3 (25 Mcg = 1000 Iu)] 50 mcg PO DAILY Ibuprofen [Motrin Ib] 600 mg PO TID Apple-C 500mg Tablet 2 tab PO DAILY Discharge Medication List Ibuprofen [Motrin Ib] 600 mg PO TID 06/11/21 [History] Calcium Citrate 600mg Tablet 2 tab PO DAILY 06/19/21 [History] Cholecalciferol [Vitamin D3 (25 Mcg = 1000 Iu)] 50 mcg PO DAILY 06/19/21 [History] Apple-C 500mg Tablet 2 tab PO DAILY 06/19/21 [History] Acetaminophen Tab [Tylenol] 650 mg PO Q6HR PRN tab 06/25/21 [Rx] Albuterol Inhaler [Ventolin Hfa Inhaler] 2 puff INHALATION RT-QID 30 Days #1 inh 06/25/21 [Rx] Ascorbic Acid [Vitamin C] 1,000 mg PO DAILY 30 Days #60 tab 06/25/21 [Rx] Bumetanide [BUMEX] 0.5 mg PO DAILY 30 Days #30 tab 06/25/21 [Rx] Dexamethasone [Decadron] 6 mg PO DAILY 4 Days #4 tablet 06/25/21 [Rx] Zinc Sulfate [Orazinc] 220 mg PO DAILY 30 Days #30 cap 06/25/21 [Rx] Follow up Appointment(s)/Referral(s): Radhika Munoz [NON-STAFF] - As Needed Conrado Orozco DO [Primary Care Provider] - 1-2 days Reece Jimenez [NON-STAFF] - As Needed Lillie Maldonado MD [STAFF PHYSICIAN] - 07/20/21 9:15 am Ambulatory/Diagnostic Orders: Basic Metabolic Panel [LAB.AMB] Time Frame: 3 Days, Location: None Selected Magnesium [LAB.AMB] Location: None Selected Patient Instructions/Handouts: Coronavirus Disease 2019 (COVID-19), Using Oxygen at Home (DC) Activity/Diet/Wound Care/Special Instructions: Activity: As tolerated. Take breaks as needed. Diet: Heart healthy and carb consistent diet. Avoid salts, or foods with hidden salts such as canned or boxed foods and frozen dinners. Extra salt makes your heart work harder and traps the fluid in your body for longer. Special Instructions: Take all of your medications as directed and remember to keep all of your doctor's appointments and follow-up as needed. It is important for you to follow up with your orthopedic surgeon as previously scheduled for continued monitoring/management/treatment of your right humeral fracture. You may continue with sling as needed for comfort and orthopedic specialists recommending activities as tolerated with the right arm at waist level only pending further recommendations from your orthopedic surgeon upon follow-up. Not recommending physical therapy on right arm at this time pending again further recommendations from her orthopedic surgeon at follow-up. You are being discharged to an extended care facility, [facility], as we discussed for your requests for continued rehab upon discharge to regain some strength and endurance. You are also being discharged on oxygen, it is important to wear this oxygen at all times until further instructed by your embossing press operator, Dr. Maldonado upon follow up. Thank you for allowing us to participate in your care, it was truly a pleasure having you for our patient!!! Discharge Disposition: TRANSFER TO SNF/ECF <Deepa Aldridge - Last Filed: 06/25/21 16:19> Providers Date of admission: 06/19/21 17:19 Attending physician: Mago Whitfield DO Consults: 06/19/21 17:19 Consult Physician Routine Consulting Provider: Bhavana Toledo Consult Reason/Comments: covid Do you want consulting provider notified?: Yes 06/19/21 18:13 Consult Physician Routine Consulting Provider: Todd Pitts Consult Reason/Comments: Hyponatremia Do you want consulting provider notified?: Yes 06/22/21 14:52 Consult Physician Routine Consulting Provider: Jon Ann Consult Reason/Comments: shoulder fx Do you want consulting provider notified?: Yes Primary care physician: Conrado marie [facility] Course: I reviewed the documentation as provided by the JUANIS above, who is the original author of this note. I agree with the documented assessment and plan, with the following changes: None
[2021-06-25 14:18] VITALS: BMI 23.0
== END 2021-06-25 13:45 | DRG 871 ==
LOC: EC 13:45 → 4SSUR 17:19
PROVIDERS: ADMIT Internal Medicine; ATTEND Internal Medicine
DX: A41.89 Other specified sepsis (principal); U07.1 COVID-19; E43 Unspecified severe protein-calorie malnutrition; G92.8 Other toxic encephalopathy; I50.33 Acute on chronic diastolic (congestive) heart failure; J12.82 Pneumonia due to coronavirus disease 2019; J96.01 Acute respiratory failure with hypoxia; E87.1 Hypo-osmolality and hyponatremia; Z66 Do not resuscitate; I82.403 Acute embolism and thrombosis of unspecified deep veins of lower extremity, bilateral; S42.201A Unspecified fracture of upper end of right humerus, initial encounter for closed fracture; E86.1 Hypovolemia; G35 Multiple sclerosis; I27.20 Pulmonary hypertension, unspecified; L89.310 Pressure ulcer of right buttock, unstageable; L89.329 Pressure ulcer of left buttock, unspecified stage; M81.0 Age-related osteoporosis without current pathological fracture; Z79.899 Other long term (current) drug therapy; Z86.718 Personal history of other venous thrombosis and embolism; F32.A Depression, unspecified; F41.9 Anxiety disorder, unspecified; M19.90 Unspecified osteoarthritis, unspecified site; N80.9 Endometriosis, unspecified; R29.6 Repeated falls; R79.89 Other specified abnormal findings of blood chemistry; R09.89 Other specified symptoms and signs involving the circulatory and respiratory systems
CPT/HCPCS: 36415; 71045; 71275; 76604; 80048; 80053; 83605; 83615; 83735; 83880; 84100; 84145; 84484; 85025; 85027; 85379; 85610; 85730; 86140; 86738; 87040; 87081; 87430; 87449; 87635; 93005; 93306; 93970; 94640; 94760; 96365; 96375; 99291